=== PATIENT | female | born 1960 | race Caucasian/White ===

== ENCOUNTER 2022-02-07 14:27 | Outpatient (CLI) | payer OTHER, SELFPAY ==
--- OUTSIDE RECORDS SUMMARY | 2022-02-07 14:30 | XMS_ITS | Clinical Summary ---
:1960 Author Organization [facility] [place] [address] Care Team Providers Name Role Phone Siobhan Puente MD Primary Care Provider Unavailable Allergies No known active allergies Medications Medication Sig Dispensed Refills Start Date End Date Status lutein-zeaxanthin 25-5 Take by mouth. 0 05/23/2016 Active mg cap omega-3 fatty Take by mouth. 0 05/23/2016 Active acids-vitamin E (FISH OIL) 1,000 mg cap multivitamins-calcium- Take 1 tablet by 0 04/20/2017 Active iron-minerals 27-0.4 mouth once daily. mg tab tablet Active Problems Problem Noted Date Impaired fasting glucose 06/11/2012 Diverticulosis of colon (without mention of hemorrhage ) 05/02/2011 Overview: Colonoscopy 04/2011 diverticulosis repea t in 10 years Mole (skin) 01/03/2010 Overview: Moderate atypia in lesion on the low ronen k Lip lesion 01/03/2010 Resolved Problems Problem Noted Date Resolved Date Contraception 11/30/2008 06/11/2012 Medial epicondylitis of elbow 11/30/2008 06/11/2012 Lateral epicondylitis of elbow 11/30/2008 3 Immunizations Name Administration Dates Next Due Influenza, IIV4 04/20/2017, 05/23/2016 Td (Age >=7 Years) 01/21/2003 Tdap 04/10/2011 Family History Medical History Relation Name Comments Cancer Father larynx, was a sm oker Good Health Mother Hypertension Mother Cancer-breast No Family History Cancer-colon No Family History Relation Name Status Comments Brother 1 murder Brother 2 froze to Brother 3 alchoholic Father larynx cancer Mother Alive Social History Tobacco Use Types Packs/Day Years Used Date Never Smoker Smokeless Tobacco: Never Used Tobacco Cessation: Counseling Given: Yes Alcohol Use Standard Drinks/Week Comments Yes 0 (1 standard drink = 0.6 oz pure alcoho l) weekly Sex Assigned at Date Recorded Not on file Obstetrics History Para Term AB IAB SAB Ectopic Multiple Living Live Births 0 0 0 0 0 0 0 0 0 0 Last Filed Vital Signs Vital Sign Reading Time Taken Comments Blood Pressure 147/82 04/20/2017 3:44 PM UNDERCOVER AGENT Pulse 60 04/20/2017 3:39 PM UNDERCOVER AGENT Temperature 36.8 ??C (98.2 ??F) 05/23/2016 9:17 AM UNDERCOVER AGENT Respiratory Rate - - Oxygen Saturation 99% 04/20/2017 3:39 PM UNDERCOVER AGENT Inhaled Oxygen Concentration - - Weight 70.8 kg (156 lb) 04/20/2017 3:39 PM UNDERCOVER AGENT Height 168.5 cm (5' 6.34) 04/20/2017 3:39 PM UNDERCOVER AGENT Body Mass Index 24.92 04/20/2017 3:39 PM UNDERCOVER AGENT Plan of Treatment Health Maintenance Due Date Last Done Comments COVID-19 vaccine series (#1) 1960 Hepatitis C screening for age 0801/07/1977 18-79 Zoster (shingles) series for age 0801/07/2009 50+ (1 of 2) BMI (ht and wt on same day) for 04/20/2018 04/20/2017, 05/05 age 18+ Depression screening for age 12+ 04/20/2018 04/20/2017, Mammogram for age 45-75 04/20/2018 04/20/2017, 05/23/2016, 06/11/2012, Additional history exists Tetanus booster 04/10/2021 04/10/2011, 01/21/2003 Colonoscopy through age 75 05/02/2021 05/02/2011, 1 Lipids for age 45-75 05/23/2021 05/23/2016, 04/26/2011, 09/28/2006 Pap test for age 21-65 05/23/2021 05/23/2018, 05/23/2018, 05/23/2016, Additional history exists Influenza for age 50-64 02/02/2022 04/20/2017, 05/23/2016, 04/10/2011 (Declined) Tdap Completed 04/10/2011 Goals Goal Patient Goal Associated Recent Patient-Stated? 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
--- NOTE | 2022-02-07 14:40 | CRLHL7_ITS ---
For Patients: As a result of the Century Cures Act, medical imaging exams and procedure reports are released immediately into your electronic medical record. You may view this report before your referring provider. If you have questions, please contact your health care provider. BILATERAL SCREENING MAMMOGRAM WITH COMPUTER-AIDED DETECTION AND TOMOSYNTHESIS TECHNIQUE: CC and MLO views were obtained. These mammographic images have been obtained using full-field digital technique. These mammographic images were interpreted with the benefit of computer-aided detection. Breast Tomosynthesis was used in this interpretation. COMPARISON FILM: 09/07/20, 05/26/19, 05/23/18. FINDINGS: There are scattered areas of fibroglandular density IMPRESSION: There is no radiographic evidence for malignancy. ASSESSMENT: BI-RADS Category 1: Negative RECOMMENDATION: Routine screening mammogram in 1 year. A lay language report of this examination will be provided to the patient. Klever Roland M.D. Diagnostic Radiologist [email or web address] TERE/Dictated by: Klever Roland MD @ 02/08/2022 8:31:00 AM (Electronically Signed)
== END 2022-02-07 14:28 | disposition home or self-care (01) ==
LOC: MAMMO 14:28
PROVIDERS: PCP Internal Medicine; Visit Provider Internal Medicine
DX: Z12.31 Encounter for screening mammogram for malignant neoplasm of breast (principal)
CPT/HCPCS: 77063; 77067

== ENCOUNTER 2023-02-15 15:09 | Outpatient (CLI) | payer OTHER, SELFPAY ==
--- NOTE | 2023-02-15 15:20 | CRLHL7_ITS ---
For Patients: As a result of the Century Cures Act, medical imaging exams and procedure reports are released immediately into your electronic medical record. You may view this report before your referring provider. If you have questions, please contact your health care provider. BILATERAL SCREENING MAMMOGRAM WITH COMPUTER-AIDED DETECTION AND TOMOSYNTHESIS TECHNIQUE: CC and MLO views were obtained. These mammographic images have been obtained using full-field digital technique. These mammographic images were interpreted with the benefit of computer-aided detection. Breast Tomosynthesis was used in this interpretation. COMPARISON FILM: 02/07/22, 09/07/20,05/26/19. FINDINGS: There are scattered areas of fibroglandular density IMPRESSION: There is no radiographic evidence for malignancy. ASSESSMENT: BI-RADS Category 2: Benign RECOMMENDATION: Routine screening mammogram in 1 year. A lay language report of this examination will be provided to the patient. Klever Roland M.D. Diagnostic Radiologist [email or web address] TERE/Dictated by: Klever Roland MD @ 02/16/2023 12:49:00 PM (Electronically Signed)
== END 2023-02-15 15:10 | disposition home or self-care (01) ==
LOC: MAMMO 15:10
PROVIDERS: PCP Internal Medicine; Visit Provider Internal Medicine
DX: Z12.31 Encounter for screening mammogram for malignant neoplasm of breast (principal)
CPT/HCPCS: 77063; 77067

== ENCOUNTER 2023-11-05 14:47 | Outpatient (CLI) | payer OTHER, SELFPAY ==
--- OUTSIDE RECORDS SUMMARY | 2023-11-05 14:51 | XMS_ITS ---
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 Procedure Estimated Blood Loss Check Surgery Details section. Procedure Findings Check Surgery Details section. Procedure Specimens Taken Check Surgery Details section.
--- OUTSIDE RECORDS SUMMARY | 2023-11-05 14:51 | XMS_ITS | Clinical Summary ---
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 For routine questions regarding patient records, call [phone] during business hours, M-F 8:00 AM - 5:00 PM Central Time. Record requests for emergency care only can be directed to [phone] at any time.[facility] Allergies No known active allergies Medications Medication Sig Dispensed Refills Start Date End Date Status levETIRAcetam (KEPPRA) 1,000 mg tablet Take 1 tablet (1,000 mg total) by mouth 2 (two) times a day for 13 doses. To prevent seizure from known intracranial bleed. 13 tablet 10/02/2023 Active ondansetron ODT (ZOFRAN-ODT) 4 mg disintegrating tablet Dissolve 1 tablet (4 mg total) in the mouth every 8 (eight) hours as needed for nausea or vomiting. 20 tablet 10/02/2023 Active Additional Information Patient not taking.Reported on 10/05/2023 acetaminophen (TYLENOL) 500 mg tablet Take 2 tablets (1,000 mg total) by mouth 3 (three) times a day. 60 tablet 2 10/02/2023 Active Additional Information Patient not taking.Reported on 10/05/2023 vit27,calcium/iron/F A (multivitamin/minera l-) tablet Take 1 tablet by mouth daily. Health maintenance. 90 tablet 3 10/03/2023 Active lutein-zeaxanthin 25-5 mg capsule Take by mouth. 05/23/2016 Activ e wqjkqyipdrvy-Ra-rgdt -minerals 27-0.4 mg tablet Take 1 tablet by mouth daily. 04/20/2017 Active Active Problems Problem Noted Date Diagnosed Date Subarachnoid Hemorrhage With Loss Of Conscious I nitial 10/02/2023 Traumatic Subdural Hemorrhag e With Loss Of Consciousness Of 30 Minutes Or Less Initial 10/02/2023 History Of Falling 10/02/2023 Alcohol Abuse With Intoxication Unspecified 09/04 Contusion Shoulder Initial Left 10/02/2023 Laceration Face Initial 10/02/2023 Fracture Orbital Floor Open Initial Left 024 Resolved Problems Problem Noted Date Diagnosed Date Resolved Date Fracture Orbital Floor Closed Initial Left 10/02/2023 10/02/2023 Encounters Date Type Department Care Team Description 10/05/2023 1:00 PM CDT Comprehensive Visit Department of Neurological Surgery in [address] [phone] Kristin Grover P.A.-C., M.S. Subarachnoid Hemorrhage With Loss Of Conscious Initial (HCC); Traumatic Subdural Hemorrhage With Loss Of Consciousness Of 30 Minutes Or Less Initial (HCC); Injury Head Initial; History Of Falling; Laceration Face Initial; Alcohol Abuse With Intoxication Unspecified (HCC); Contusion Shoulder Initial Left; Fracture Orbital Floor Open Initial Left (HCC); Fracture Orbital Floor Closed Initial Left (HCC) Discharge Disposition: Home or Self Care 10/04/2023 2:00 PM CDT - 10/04/2023 11:59 PM CDT Hospital Encounter Department of Radiology in [place], [place] [address] [place] [address] Manuel Lee M.D. Subarachnoid Hemorrhage With Loss Of Conscious Initial (HCC); Traumatic Subdural Hemorrhage With Loss Of Consciousness Of 30 Minutes Or Less Initial (HCC); Injury Head Initial; History Of Falling; Laceration Face Initial; Alcohol Abuse With Intoxication Unspecified (HCC); Contusion Shoulder Initial Left; Fracture Orbital Floor Open Initial Left (HCC); Fracture Orbital Floor Closed Initial Left (HCC) Discharge Disposition: Home or Self Care 10/03/2023 Clinical Communication Department of Transitional Care in [address] [phone] Yuko Gustafson R.N. Tcm - Post-Hospital Visit 10/03/2023 Clinical Communication Department of Neurological Surgery in [place], [place] [address] [place] [phone] Lucy Mendoza R.N. Referral 10/02/2023 2:00 AM CDT Ancillary Procedure Department of Nursing 10/02/2023 1:55 AM CDT Ancillary Procedure Department of Nursing 10/02/2023 1:50 AM CDT Ancillary Procedure Department of Nursing 10/01/2023 9:03 PM CDT - 10/02/2023 6:40 PM CDT Emergency [facility], Second Floor [address] [phone] Jake Arias M.D. Ingrid Brown APRN, C.N.P., D.N.P. Manuel Lee M.D. Subarachnoid Hemorrhage With Loss Of Conscious Initial (HCC) (Primary Dx); Traumatic Subdural Hemorrhage With Loss Of Consciousness Of 30 Minutes Or Less Initial (HCC); Injury Head Initial; History Of Falling; Laceration Face Initial; Alcohol Abuse With Intoxication Unspecified (HCC); Contusion Shoulder Initial Left; Fracture Orbital Floor Open Initial Left (HCC); Fracture Orbital Floor Closed Initial Left (HCC) Discharge Disposition: Home or Self Care from Last 3 Months Immunizations Name Administration Dates Next Due Td (Adult), adsorbed 01/21/2003 Tdap 10/01/2023,04/10/2011 influenza vaccine quad (FLUZ ONE/FLUARIX) (6 months and older)(PF) 04/20/2017,05/23/2016 Social History Tobacco Use Types Packs/Day Years Used Date Smoking Tobacco: Never Smokeless Tobacco: Never Tobacco Cessation:Counseling Given: Not Answered Alcohol Use Standard Drinks/Week Comments Yes 0 (1 standard drink = 0.6 oz pur e alcohol) [facility] Utilities Answer Date Recorded In the past 12 months has e [employer], gas, oil, or water [employer] threatened to shut off services in your home? No 10/02/2023 Humiliation, Afraid, Rape, and Kick questionnair e Answer Date Recorded Within the last year, have y ou been afraid of your partner or ex-partner? No 10/02/2023 Within the last year, have y ou been humiliated or emotionally abused in other ways by your partner or ex-partner? No Within the last year, have y ou been kicked, hit, slapped, or otherwise physically hurt by your partner or ex-partner? No 10/02/2023 Within the last year, have y ou been raped or forced to have any kind of sexual activity by your partner or ex-partner? No 10/02/2023 Hunger Vital Sign Answer Date Recorded Within the past 12 months, y ou worried that your food would run out before you got the money to buy more. Never true 10/02/19 24 Within the past 12 months, t he food you bought just didn't last and you didn't have money to get more. Never true 10/02/2023 PRAPARE - Transportation Answer Date Re corded In the past 12 months, has l ack of transportation kept you from medical appointments or from getting medications? No 09/04 In the past 12 months, has l ack of transportation kept you from meetings, work, or from getting things needed for daily living? No 10/02/2023 Dental Answer Date Recorded Dental: Regular Dentist Unknown 10/10/19 Housing Stability Answer Date Recorded What is your living situation today? I have a [facility] place to live 10/02/2023 Sex and Gender Information Value Date Recorded Sex Assigned at Not on file Gender Identity Not on file Sexual Orientation Not on file Last Filed Vital Signs Vital Sign Reading Time Taken Comments Blood Pressure 119/75 10/05/2023 12:44 PM CDT Pulse 71 10/05/2023 12:44 PM CDT Temperature 36.3 ??C (97.3 ??F) 10/02/2023 6:19 PM CD T Respiratory Rate 16 10/02/2023 6:19 PM CDT Oxygen Saturation 96% 10/02/2023 6:19 PM CDT Inhaled Oxygen Concentration - - Weight 72.7 kg (160 lb 4.4 oz) 10/02/2023 1:42 A M CDT Height 170.2 cm (5' 7) 10/02/2023 1:42 AM CDT Body Mass Index 25.1 10/02/2023 1:42 AM CDT Plan of Treatment Health Maintenance Due Date Last Done Comments CT Colonography 1959 Cologuard 1959 Colonoscopy 1959 Colorectal Cancer Screening 1959 FIT 1959 HIV Screening 1959 Hepatitis C Screening 1959 Lipid (Cholesterol) Screening 1959 Mammogram 1959 Pneumococcal vaccine (0-64 y ears) (1 of 2 - PCV) 1965 Depression Screening (Annual PHQ-2) 06/04/2023 Cervical Cancer Screening 12/27/2025 12/27/2022 Fasting Glucose for Diabetes Screening 10/01/2026 10/02/2023, 10/02/2023, 10/01/2023 DTaP,Tdap,and Td Vaccines (4 - Td or Tdap) 09/30/2033 10/01/2023, 09/30/2020, 04/10/2011, Additional history exists Zoster Vaccines Completed 02/01/2021, 11/08/2020 COVID-19 Vaccine Completed 04/04/2023, 02/2022, 12/27/2021, Additional history exists Influenza Vaccine Completed 04/04/2023, , 03/15/2021, Additional history exists Procedures Procedure Name Priority Date/Time Associated Diagnosis Comments CT HEAD WITHOUT IV CONTRAST RAD - Routine (most inpatients and all outpatients) 10/04/2023 2:25 PM CDT Subarachnoid Hemorrhage With Loss Of Conscious Initial (HCC) Traumatic Subdural Hemorrhage With Loss Of Consciousness Of 30 Minutes Or Less Initial (HCC) Injury Head Initial History Of Falling Laceration Face Initial Alcohol Abuse With Intoxication Unspecified (HCC) Contusion Shoulder Initial Left Fracture Orbital Floor Open Initial Left (HCC) Fracture Orbital Floor Closed Initial Left (HCC) MAGNESIUM, S STAT 10/02/2023 4:40 PM CDT BASIC METABOLIC PANEL, S/P STAT 10/02/2023 4:[address] HEAD WITHOUT IV CONTRAST RAD - Routine (most inpatients and all outpatients) 10/02/2023 7:40 AM CDT CBC WITH DIFFERENTIAL, B Routine 10/02/2023 5:50 AM CDT BASIC METABOLIC PANEL, S/P Routine 10/02/2023 5:50 AM CDT NURSING IMAGE EXAM Routine 10/02/2023 1: 52 AM CDT NURSING IMAGE EXAM Routine 10/02/2023 1: 52 AM CDT NURSING IMAGE EXAM Routine 10/02/2023 1: [address] HEAD WITHOUT IV CONTRAST RAD - Semiurgent (Fast; most ED patients; some inpatients) 10/02/2023 12:30 AM CDT DX SHOULDER LEFT 2+ VIEWS RAD - Semiurgent (Fast; most ED patients; some inpatients) 10/01/2023 11:31 PM CDT ETHANOL, S STAT 10/01/2023 10:05 PM CDT ACTIVATED PARTIAL THROMBOPLASTIN TIME (APTT), P STAT 10/01/2023 10:05 PM CDT PROTHROMBIN TIME (PT), P STAT 10/01/2023 10:05 PM CDT CBC WITH DIFFERENTIAL, B STAT 10/01/2023 10:05 PM CDT COMPREHENSIVE METABOLIC PANEL, S/P STAT 10/01/2023 10:[address] CERVICAL SPINE WITHOUT IV CONTRAST RAD - Semiurgent (Fast; most ED patients; some inpatients) 10/01/2023 9:[address] MAXILLOFACIAL WITHOUT IV CONTRAST RAD - Semiurgent (Fast; most ED patients; some inpatients) 10/01/2023 9:[address] HEAD WITHOUT IV CONTRAST RAD - Semiurgent (Fast; most ED patients; some inpatients) 10/01/2023 9:34 PM CDT from Last 3 Months Results * CT Head without IV Contrast (10/04/2023 2:25 PM CDT) Only the most recent of4 resultswithin the time period is included. Anatomical Region Laterality Modality Head, Neuroradiology RST LOS , Neuroradiology ARZ LOS, Neuroradiology FLA LOS N/A Computed Tomography 10/04/2023 2:24 PM CDT Impressions 10/04/2023 2:33 PM CDT 1. Unchanged trace right frontal subarachnoid hemorrhage. 2. No new or additional acute intracranial pathology. Narrative 10/04/2023 2:33 PM CDT EXAM: CT HEAD WITHOUT IV CONTRAST COMPARISON: 10/02/2023 FINDINGS: Trace left frontal subarachnoid hemorrhage that is demonstrated on axial image 18 through 23 of series 3 (as indicated on the radiographs) along the interhemispheric fissure remains stable when compared to the study performed 2 days previously. There is no new acute intracranial pathology demonstrated. There is no intra- axial or extra-axial fluid collection, or midline shift. The ventricles and extra-axial compartments are symmetric and normal in appearance. The felix-white interface is normal. Air-fluid level incompletely visualized involving the left maxillary sinus. No skull fractures. Procedure Note Micah Diaz M.D. - 10/04/2023 EXAM: CT HEAD WITHOUT IV CONTRAST COMPARISON: 10/02/2023 FINDINGS: Trace left frontal subarachnoid hemorrhage that is demonstratedon axial image 18 through 23 of series 3 (as indicated on the radiographs)along the interhemispheric fissure remains stable when compared to thestudy performed 2 days previously. There is no new acute intracranial pathology demonstrated. There is nointra- axial or extra-axial fluid collection, or midline shift. Theventricles and extra-axial compartments are symmetric and normal inappearance. The felix-white interface is normal. Air-fluid level incompletely visualized involving the left maxillarysinus. No skull fractures. IMPRESSION: 1. Unchanged trace right frontal subarachnoid hemorrhage. 2. No new or additional acute intracranial pathology. Manuel Lee M.D. IMG CT PROCEDURE S * Magnesium (10/02/2023 4:40 PM CDT) Magnesium, P 1.8 1.7 - 2.3 mg/dL 10/02/2023 5:02 PM CDT NPRG Blood (Blood, Venous) 10/02/2023 4:40 PM CDT 10/02/2023 4:44 PM CDT Manuel Lee M.D. LAB BLOOD ADD-ON [facility] [address] [place] [address], [facility] NPRG [facility] [address] [place] [address] * (ABNORMAL) Basic Metabolic Panel (10/02/2023 4:40 PM CDT) Only the most recent of2 resultswithin the time period is included. Potassium, P 4.3 3.6 - 5.2 mmol/L 10/02/2023 5:02 PM CDT NPRG Sodium, P 144 135 - 145 mmol/L 10/02/2023 5:02 PM CDT NPRG Chloride, P 110(H) 98 - 107 mmol/L 10/02/2023 5:02 PM CDT NPRG Bicarbonate, P 27 22 - 29 mmol/L 10/02/2023 5:02 PM CDT NPRG Anion Gap, P 7 7 - 15 10/02/2023 5:02 PM CDT NPRG BUN (Blood Urea Nitrogen), P 20 6 - 21 mg/dL 10/02/2023 5:02 PM CDT NPRG Creatinine 0.61 0.59 - 1.04 mg/dL 10/02/2023 5:02 PM CDT NPRG Estimated GFR (eGFR) >90 >=60 mL/min/BSA 10/02/2023 5:02 PM CDT NPRG Comment: Estimated GFR calculated using the 2020 CKD_EPI creatinine equation. Calcium, Total, P 9.5 8.8 - 10.2 mg/dL 10/02/2023 5:02 PM CDT NPRG Glucose, P 84 70 - 140 mg/dL 10/02/2023 5:02 PM CDT NPRG Blood (Blood, Venous) 10/02/2023 4:40 PM CDT 10/02/2023 4:44 PM CDT Manuel Lee M.D. LAB BLOOD ADD-ON [facility] [address] [place] [address], [facility] NPRG [facility] [address] [place] [address] * CBC with Differential, Blood (10/02/2023 5:50 AM CDT) Only the most recent of2 resultswithin the time period is included. Hemoglobin 12.8 11.6 - 15.0 g/dL 10/02/2023 6:18 AM CDT NPRG Hematocrit 38.4 35.5 - 44.9 % 10/02/2023 6:18 AM CDT NPRG Erythrocytes 4.40 3.92 - 5.13 x10(12)/L 10/02/2023 6:18 AM CDT NPRG MCV 87.3 78.2 - 97.9 fL 10/02/2023 6:18 AM CDT NPRG RBC Distrib Width 13.8 12.2 - 16.1 % 10/02/2023 6:18 AM CDT NPRG Platelet Count 283 157 - 371 x10(9)/L 10/02/2023 6:18 AM CDT NPRG Leukocytes 6.2 3.4 - 9.6 x10(9)/L 10/02/2023 6:18 AM CDT NPRG Neutrophils 3.25 1.56 - 6.45 x10(9)/L 10/02/2023 6:18 AM CDT NPRG Lymphocytes 2.29 0.95 - 3.07 x10(9)/L 10/02/2023 6:18 AM CDT NPRG Monocytes 0.40 0.26 - 0.81 x10(9)/L 10/02/2023 6:18 AM CDT NPRG Eosinophils 0.24 0.03 - 0.48 x10(9)/L 10/02/2023 6:18 AM CDT NPRG Basophils <0.04 0.01 - 0.08 x10(9)/L 10/02/2023 6:18 AM CDT NPRG Blood (Blood, Venous) 10/02/2023 5:50 AM CDT 10/02/2023 6:08 AM CDT Ingrid Brown APRN, C.N.P., D.N.P. LAB BLO OD ADD-ON [facility] [address] [place] [address], [facility] NPRG [facility] [address] [place] [address] * Eye Left-Nursing Image Exam (10/02/2023 1:52 AM CDT) Only the most recent of3 resultswithin the time period is included. 10/02/2023 1:50 AM CDT Narrative IIMS - 10/02/2023 1:52 AM CDT This order has been created and auto-finalized to support the import of images acquired without order. The clinical documentation to support these images can be found on the encounter that produced images. Provider Not In System IMG NON RAD IMAGI NG PROCEDURES Performing Organization Address City/[facility]/ZIP Co de Phone Number IIMS NA * DX Shoulder Left 2+ Views (10/01/2023 11:31 PM CDT) Anatomical Region Laterality Modality Upper Extremity, Shoulder, M usculoskeletal RST LOS, Musculoskeletal ARZ LOS, Muskuloskeletal FLA LOS Left Digit al Radiography Impressions 10/01/2023 11:49 PM CDT No acute fracture or malalignment. 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 Osteopenia. Narrative 10/01/2023 11:49 PM CDT EXAM: DX SHOULDER LEFT 2+ VIEWS Procedure Note Giovanni Tijerina M.D. - 10/01/2023 EXAM: DX SHOULDER LEFT 2+ VIEWS IMPRESSION: No acute fracture or malalignment. Mild to moderate acromioclavicular andglenohumeral joint degenerative osteoarthritis. Osteopenia. Jake Arias M.D. IMG DIAGNOSTIC IMAG ING PROCEDURES * (ABNORMAL) Ethanol Level, Serum (10/01/2023 10:05 PM CDT) Ethanol, P 205(H) <10 mg/dL 10/01/2023 10:33 PM CDT NPRG Blood (Blood, Venous) 10/01/2023 10:05 PM CDT 10/01/2023 10:08 PM CDT Jake Arias M.D. LAB BLOOD NON ADD-O N [facility] [address] [place] [address], [facility] NPRG [place] [address] [place] [address] * APTT (Activated Partial Thromboplastin Time) (10/01/2023 10:05 PM CDT) Activated Partial Thrombopl Time, P 28 25 - 37 sec 10/01/2023 10:20 PM CDT NPRG Blood (Blood, Venous) 10/01/2023 10:05 PM CDT 10/01/2023 10:08 PM CDT Jake Arias M.D. LAB BLOOD ADD-ON [facility] [address] [place] [address], [facility] NPRG [place] [address] [place] [address] * Prothrombin Time (PT) (10/01/2023 10:05 PM CDT) Prothrombin Time, P 9.6 9.4 - 12.5 sec 10/01/2023 10:17 PM CDT NPRG INR 0.9 0.9 - 1.1 10/01/2023 10:17 PM CDT NPRG Comment: ----ADDITIONAL INFORMATION---- Standard intensity warfarin therapeutic range: 2.0 to 3.0 ?? High intensity warfarin therapeutic range: 2.5 to 3.5 Blood (Blood, Venous) 10/01/2023 10:05 PM CDT 10/01/2023 10:08 PM CDT Jake Arias M.D. LAB BLOOD ADD-ON [facility] [address] [place] [address], [facility] NPRG [facility] [address] [place] [address] * (ABNORMAL) Comprehensive Metabolic Panel (10/01/2023 10:05 PM CDT) Potassium, P 3.4(L) 3.6 - 5.2 mmol/L 10/01/2023 10:33 PM CDT NPRG Sodium, P 144 135 - 145 mmol/L 10/01/2023 10:33 PM CDT NPRG Chloride, P 108(H) 98 - 107 mmol/L 10/01/2023 10:33 PM CDT NPRG Bicarbonate, P 23 22 - 29 mmol/L 10/01/2023 10:33 PM CDT NPRG Anion Gap, P 13 7 - 15 10/01/2023 10:33 PM CDT NPRG BUN (Blood Urea Nitrogen), P 23(H) 6 - 21 mg/dL 10/01/2023 10:33 PM CDT NPRG Creatinine 0.58(L) 0.59 - 1.04 mg/dL 10/01/2023 10:33 PM CDT NPRG Estimated GFR (eGFR) >90 >=60 mL/min/BS A 10/01/2023 10:33 PM CDT NPRG Comment: Estimated GFR calculated using the 2020 CKD_EPI creatinine equation. Calcium, Total, P 9.4 8.8 - 10.2 mg/dL 10/01/2023 10:33 PM CDT NPRG Glucose, P 118 70 - 140 mg/dL 10/01/2023 10:33 PM CDT NPRG Protein, Total, P 6.7 6.3 - 7.9 g/dL 10/01/2023 10:33 PM CDT NPRG Albumin, P 4.1 3.5 - 5.0 g/dL 10/01/2023 10:33 PM CDT NPRG Aspartate Aminotransferase (AST), P 20 8 - 43 U/L 10/01/2023 10:33 PM CDT NPRG Alkaline Phosphatase, P 79 35 - 104 U/L 10/01/2023 10:33 PM CDT NPRG Alanine Aminotransferase (ALT), P 20 7 - 45 U/L 10/01/2023 10:33 PM CDT NPRG Bilirubin, Total, P <0.2 0.0 - 1.2 mg/dL 10/01/2023 10:33 PM CDT NPRG Blood (Blood, Venous) 10/01/2023 10:05 PM CDT 10/01/2023 10:08 PM CDT Jake Arias M.D. LAB BLOOD ADD-ON [facility] [address] [place] [address], [facility] NPRG [facility] [address] [place] [address] * CT Cervical Spine without IV Contrast (10/01/2023 9:35 PM CDT) Anatomical Region Laterality Modality Cervical Spine, Neuroradiolo gy RST LOS, Neuroradiology ARZ LOS, Neuroradiology FLA LOS N/A Computed Tomography 10/01/2023 9:37 PM CDT Impressions 10/01/2023 9:55 PM CDT No acute fracture or malalignment of the cervical spine. Narrative 10/01/2023 9:55 PM CDT EXAM: CT CERVICAL SPINE WITHOUT IV CONTRAST COMPARISON: None FINDINGS: No acute fracture or malalignment. Slight reversal of normal cervical lordosis. Multilevel degenerative disc disease, greatest at C5-C6 and C6-C7 where it is moderate. Multilevel posterior disc osteophyte complexes, most notable at C6-C7 with mild associated spinal canal narrowing. Multilevel neural foraminal narrowing, greatest at C6-C7 on the left where it is moderate. Multilevel facet joint arthropathy. No perched or jumped facets. No significant asymmetric posterior interspinous widening. Grossly unremarkable prevertebral and paraspinal soft tissues. Small calcified calcified thyroid nodules. Procedure Note Giovanni Tijerina M.D. - 10/01/2023 EXAM: CT CERVICAL SPINE WITHOUT IV CONTRAST COMPARISON: None FINDINGS: No acute fracture or malalignment. Slight reversal of normal cervical lordosis. Multilevel degenerative discdisease, greatest at C5-C6 and C6-C7 where it is moderate. Multilevelposterior disc osteophyte complexes, most notable at C6-C7 with mildassociated spinal canal narrowing. Multilevel neural foraminal narrowing, greatest at C6-C7 on the left whereit is moderate. Multilevel facet joint arthropathy. No perched or jumpedfacets. No significant asymmetric posterior interspinous widening. Grossly unremarkable prevertebral and paraspinal soft tissues. Smallcalcified calcified thyroid nodules. IMPRESSION: No acute fracture or malalignment of the cervical spine. Jake Arias M.D. IMG CT PROCEDURES * CT Maxillofacial without IV Contrast (10/01/2023 9:34 PM CDT) Anatomical Region Laterality Modality Jaw, Head, Neuroradiology RS T LOS, [facility]ad[facility], [facility] N/A Computed Tomography Impressions 10/01/2023 9:45 PM CDT 1. Acute left parafalcine subarachnoid hemorrhage. 2. Small acute right parafalcine subdural hematoma. 3. Acute blowout fracture of the left orbital floor. 4. Left periorbital soft tissue contusion. Findings discussed with Dr. Arias on 10/01/2023 at 2138. Narrative 10/01/2023 9:45 PM CDT EXAM: CT HEAD WITHOUT IV CONTRAST, CT MAXILLOFACIAL WITHOUT IV CONTRAST COMPARISON: None FINDINGS: Trace amount of left parafalcine subarachnoid hemorrhage (series 6 image 41). Small volume right parafalcine subdural hematoma (series 6 image 32 and series 5 image 52). Mild sulcal effacement along the falx on the left. No hydrocephalus or acute infarct. Moderate global cerebral and cerebellar volume loss. Scattered intracranial vascular calcifications. Acute blowout fracture of the left orbital floor. No evidence of extra-axial muscular entrapment. Left periorbital soft tissue contusion. Partial opacification of the left maxillary sinus with blood products. Mucous retention cyst in the right maxillary sinus. The remainder the visualized paranasal sinuses and mastoid air cells are well-aerated. Procedure Note Prosper Mansfield M.D. - 10/01/2023 EXAM: CT HEAD WITHOUT IV CONTRAST, CT MAXILLOFACIAL WITHOUT IV CONTRAST COMPARISON: None FINDINGS: Trace amount of left parafalcine subarachnoid hemorrhage (series6 image 41). Small volume right parafalcine subdural hematoma (series 6image 32 and series 5 image 52). Mild sulcal effacement along the falx onthe left. No hydrocephalus or acute infarct. Moderate global cerebral and cerebellar volume loss.Scattered intracranial vascular calcifications. Acute blowout fracture ofthe left orbital floor. No evidence of extra-axial muscular entrapment.Left periorbital soft tissue contusion. Partial opacification of the left maxillary sinus with blood products.Mucous retention cyst in the right maxillary sinus. The remainder thevisualized paranasal sinuses and mastoid air cells are well-aerated. IMPRESSION: 1. Acute left parafalcine subarachnoid hemorrhage. 2. Small acute right parafalcine subdural hematoma. 3. Acute blowout fracture of the left orbital floor. 4. Left periorbital soft tissue contusion. Findings discussed with Dr. Arias on 10/01/2023 at 2138. Jake Arias M.D. 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
--- OUTSIDE RECORDS SUMMARY | 2023-11-05 14:51 | XMS_ITS | Encounter Summary ---
Author Organization [facility] Address [address] [place] [address] Care Team Providers Care Broadcast Meteorologist Name Role Phone Elsewhere, Pcp Primary Care Provider Unavailabl e Reason for Referral * Outpatient (Routine) - Authorized Specialty Diagnoses / Procedures Referred By Contac t Referred To Contact Kristin Grover P.A.-C., M.S. [facility] [place] [address] [facility] Referral ID Status Reason Start Date Expiration Date V isits Requested Visits Authorized [id number] Authorized 10/05/2023 04/05/2025 1 1 Scheduling Instructions With Kristin after head CT completed (external results will need to be retrieved) * Outpatient (Routine) - Authorized Specialty Diagnoses / Procedures Referred By Contac t Referred To Contact Radiology Diagnoses Subarachnoid Hemorrhage With Loss Of Conscious Initial (HCC) Traumatic Subdural Hemorrhage With Loss Of Consciousness Of 30 Minutes Or Less Initial (HCC) Kristin Grover P.A.-C., M.S. [address] [place] [address] [address] Phone: [phone] Referral ID Status Reason Start Date Expiration Date Visits Requested Visits Authorized [id number] Authorized Patient Preference 10/05/2023 04/05/2025 1 1 Reason for Visit * Reason Comments Follow-up Subarachnoid Hemorrh age. CT's completed on 10/03 * Outpatient (Routine) - Closed Specialty Diagnoses / Procedures Referred By Leander t Referred To Contact Neurological Surgery Diagnoses Subarachnoid Hemorrhage With Loss Of Conscious Initial (HCC) Traumatic Subdural Hemorrhage With Loss Of Consciousness Of 30 Minutes Or Less Initial (HCC) Injury Head Initial History Of Falling Laceration Face Initial Alcohol Abuse With Intoxication Unspecified (HCC) Contusion Shoulder Initial Left Fracture Orbital Floor Open Initial Left (HCC) Fracture Orbital Floor Closed Initial Left (HCC) Manuel Lee M.D. [address] [place] [phone] [facility] Referral ID Status Reason Start Date Expiration Date Visits Re quested Visits Authorized [id number] Closed 10/02/2023 04/02/2025 1 1 Encounter Details Date Type Department Care Team (Latest Contact Info) Description 10/05/2023 1:00 PM CDT Comprehensive Visit Department of Neurological Surgery in [address] [phone] Kristin Grover P.A.-C., M.S. [address] [place] [phone] Subarachnoid Hemorrhage With Loss Of Conscious Initial (HCC); Traumatic Subdural Hemorrhage With Loss Of Consciousness Of 30 Minutes Or Less Initial (HCC); Injury Head Initial; History Of Falling; Laceration Face Initial; Alcohol Abuse With Intoxication Unspecified (HCC); Contusion Shoulder Initial Left; Fracture Orbital Floor Open Initial Left (HCC); Fracture Orbital Floor Closed Initial Left (HCC) Discharge Disposition: Home or Self Care Social History Tobacco Use Types Packs/Day Years Used Date Smoking Tobacco: Never Smokeless Tobacco: Never Tobacco Cessation:Counseling Given: Not Answered Alcohol Use Standard Drinks/Week Comments Yes 0 (1 standard drink = 0.6 oz pur e alcohol) [facility] Utilities Answer Date Recorded In the past 12 months has [employer] gas, oil, or water [email or web address] threatened to shut off services in your [...] things needed for daily living? No 10/02/2023 Housing Stability Answer Date Recorded What is your living situation today? I have a [facility] place to live 10/02/2023 Sex and Gender Information Value Date Recorded Sex Assigned at Not on file Gender Identity Not on file Sexual Orientation Not on file documented as of this encounter Last Filed Vital Signs Vital Sign Reading Time Taken Comments Blood Pressure 119/75 10/05/2023 12:44 PM CDT Pulse 71 10/05/2023 12:44 PM CDT Temperature - - Respiratory Rate - - Oxygen Saturation - - Inhaled Oxygen Concentration - - Weight - - Height - - Body Mass Index - - documented in this encounter Progress Notes * Kristin Grover P.A.-C., M.S. - 10/05/2023 1:00 PM CDT SUBJECTIVE CHIEF COMPLAINT / REASON FOR VISIT Theresa Krause is a 63 y.o. female who presents for evaluation of traumatic subarachnoid hemorrhage.Follow up of trace left frontal subarachnoid hemorrhage. HISTORY OF PRESENT ILLNESS Patient returns to Neurosurgery for follow up of traumatic subarachnoid hemorrhage after a fall at home. Patient was initially seen in the Emergency Department on 10/01/2023 following a fall resultingin orbital fracture and intracranial hemorrhage. Neurosurgery consulted regarding CT findings of acute intracranial hemorrhage without compression or midline shift. No neurosurgical intervention indicated. She has been managed conservatively with close surveillance. I would refer the interested reader to previous ED notes for further details in this regard. A CT of the head was obtained prior to this visit and those results are discussed in detail below. At this time, the patient denies any headache, nausea, vomiting, dizziness, confusion, disorientation, weakness in the extremities, numbnessin the extremities, difficulty speaking, difficulty understanding speech, problems with balance, orany other neurologic concerns. She notes some occasional fatigue, but otherwise denies post concussi ve symptoms. She does have an orbital fracture with sutures overlying the left zygomatic arch and cheek region. No concerns with wound, but would like to know when sutures should be removed. She states she has follow up with her eye doctor in November. She is able to see out of her left eye and look around without any significant pain. Vision is mainly limited due to soft tissue periorbital swelling.No recent stroke or seizure like symptoms. The following portions of the patient's history were reviewed and updated as appropriate: allergies, current medications, family history, medical history, social history, surgical history and problemlist. SURGICAL HISTORY No past surgical history on file. REVIEW OF SYSTEMS Constitutional: Positive for fatigue. - Negative for fever. Eyes: Positive for visual problems. - Negative for double vision and sudden loss of vision. All other systems reviewed and are negative. OBJECTIVE VITAL SIGNS BP 119/75 (BP Location: Left arm, Patient Position: Sitting, Cuff Size: Regular) Pulse 71 PHYSICAL EXAMINATION General: The patient is well-nourished, well-developed and in no acute distress. HEENT: Head is normocephalic and atraumatic. Laceration closed with suture below the left eye on the cheek. Skin edges are well apposed with sutures. No surrounding redness or concerning drainage present. Vascular: No lower extremity edema is noted on exam. Extremities are warm and appear well perfused. Mental Status: The patient is alert and oriented to person, place, time, and situation. Memory to recent, remote, and working events appears to be grossly intact. Speech is normal in speed and content. No mental status concerns. Neuro: Cranial nerves II-XII were all intact without any noted abnormalities. Visual field only appears to be limited due to periorbital swelling in the left eye. Oculomotor functions intact and without pain. Strength and sensation are full and symmetric throughout upper and lower extremities bilaterally. Gait is normal and non-antalgic. No obvious balance deficits. Pronator drift is negative bilaterally. Romberg test is negative. Reflexes are 2+ bilaterally at the biceps, triceps, patella, andbrachioradialis. No increased tone noted. Psychiatric: Normal and appropriate mood, affect, behavior, and speech. DIAGNOSTICS CT of the head without contrast dated 10/04/2023 reveals stable to resolving previously noted intracranial hemorrhage. No new or recurrent hemorrhage noted. CT Head without IV Contrast Result Date: 10/04/2023 Impression: 1. Unchanged trace right frontal subarachnoid hemorrhage. 2. No new or additional acuteintracranial pathology. CT Head without IV Contrast Result Date: 10/02/2023 Impression: 1. Since earlier today at 0020, no significant interval change in the small volume acute subdural and subarachnoid hemorrhage as described. No new area of acute intracranial hemorrhage. No mass effect. 2. The known left orbital blowout fractures better demonstrated on 10/01/[address] CT Head without IV Contrast Result Date: 10/02/2023 Impression: Unchanged small volume acute parafalcine subarachnoid and thin subdural hemorrhage. No new or increasing acute intracranial hemorrhage. CT Cervical Spine without IV Contrast Result Date: 10/01/2023 Impression: No acute fracture or malalignment of the cervical spine. CT Head without IV Contrast, CT Maxillofacial without IV Contrast Result Date: 10/01/2023 Impression: 1. Acute left parafalcine subarachnoid hemorrhage. 2. Small acute right parafalcine subdural hematoma. 3. Acute blowout fracture of the left orbital floor. 4. Left periorbital soft tissuecontusion. Findings discussed with Dr. Arias on 10/01/2023 at 2138. ASSESSMENT / PLAN #1 Subarachnoid Hemorrhage With Loss Of Conscious Initial (HCC) #2 Traumatic Subdural Hemorrhage With Loss Of Consciousness Of 30 Minutes Or Less Initial (HCC) #3 Injury Head Initial #4 History Of Falling #5 Laceration Face Initial #6 Alcohol Abuse With Intoxication Unspecified (HCC) #7 Contusion Shoulder Initial Left #8 Fracture Orbital Floor Open Initial Left (HCC) #9 Fracture Orbital Floor Closed Initial Left (HCC) Plan: Patient returns for follow up of intracranial hemorrhage after a fall. The patient appears stable from a neurosurgical opinion. On yesterday's CT, the previously noted blood is resolving; no new or recurrent hemorrhage noted. No neurosurgical intervention is presently recommended. I am very pleasedwith her progress to this point. At this point, the plan is to repeat head CT in 1 month to ensure continued resolution of the head bleed; she would like to complete her CT in [place] and will plan to follow up via phone visit unless there are significant concerns. We discussed thoroughly the signs and symptoms of an enlarging intracranial hemorrhage and/or stroke. The patient will go to the ergency room or call 911 if she develops any difficulties walking, difficulties talking or understanding speech, drooping in the face, weakness in the extremities, seizures, confusion, dizziness, worsening headache, or any other worrisome signs or symptoms. Recommend follow up with PCP 7-10 days from the fall to remove her sutures and assess wound. She is advised to utilize cold packs to help with swelling, but should avoid placing these directly over the eye. The patient agrees with this plan and feels comfortable with it. All questions and concerns have been answered to her satisfaction. Kristin Grover P.A.-C., M.S. documented in this encounter Plan of Treatment Scheduled Referrals Name Type Priority Associated Diagnoses Orde r Schedule NonF2F phone visit Outpatient Referral Routine Expected: 11/05/2023, Expires: 01/04/2025 documented as of this encounter Visit Diagnoses Diagnosis Subarachnoid Hemorrhage With Loss Of Conscious Initial (HCC) Traumatic Subdural Hemorrhage With Loss Of Consciousness Of 30 Minutes Or Less Initial (HCC) Injury Head Initial History Of Falling Laceration Face Initial Alcohol Abuse With Intoxication Unspecified (HCC) Contusion Shoulder Initial Left Fracture Orbital Floor Open Initial Left (HCC) Fracture Orbital Floor Closed Initial Left (HCC) documented in this encounter Care Teams Broadcast Meteorologist Relationship Specialty Start Date End Date Elsewhere, Pcp PCP - General Internal Medicine 10/01/23 documented as of this encounter
--- OUTSIDE RECORDS SUMMARY | 2023-11-05 14:51 | XMS_ITS | Referral Summary ---
Author Organization [facility] Address [address] [place] [address] Care Team Providers Care De Alcoholizer Name Role Phone Elsewhere, Pcp Primary Care Provider Unavailabl e Source Comments Patient records contain information from all sites at [facility]. For routine questions regarding patient records, call [phone] during business hours, M-F 8:00 AM - 5:00 PM Central Time. Record requests for emergency care only can be directed to [phone] at any time.[facility] Encounters Date Type Department Care Team Description 10/05/2023 1:00 PM CDT Comprehensive Visit Department of Neurological Surgery in [place], [place] [address] [place] [phone] Kristin Grover, P.A.-C., M.S. Subarachnoid Hemorrhage With Loss Of [...] CDT Hospital Encounter Department of Radiology in [place], [place] [address] [place] [phone] Manuel Lee M.D. Subarachnoid Hemorrhage With Loss [...] Clinical Communication Department of Transitional Care in [address] [phone] Yuko Gustafson R.N. [facility] - Post-Hospital Visit 10/03/2023 Clinical Communication Department of Neurological Surgery in [address] [phone] Lucy Mendoza R.N. Referral 10/02/2023 2:00 AM CDT Ancillary Procedure Department of Nursing 10/02/2023 1:55 AM CDT Ancillary Procedure Department of Nursing 10/02/2023 1:50 AM CDT Ancillary Procedure Department of Nursing 10/01/2023 9:03 PM CDT - 10/02/2023 6:40 PM CDT Emergency [facility], Second Floor [address] [place] [phone] Jake Arias M.D. Ingrid Brown S, LEON, C.N.P., D.N.P. Manuel Lee M.D. Subarachnoid Hemorrhage [...] or Self Care from Last 3 Months Allergies No known active allergies Medications Medication [...] capsule Take by mouth. 05/23/2016 Activ e iiutviuuduhz-Gk-nryd -minerals 27-0.4 mg tablet Take 1 tablet [...] Orbital Floor Closed Initial Left 10/02/2023 10/02/2023 Immunizations Name Administration Dates Next Due Td (Adult), adsorbed 01/21/2003 Tdap 10/01/2023,04/10/2011 influenza vaccine quad (FLUZ ONE/FLUARIX) (6 months and older)(PF) 04/20/2017,05/23/2016 Social History Tobacco Use Types Packs/Day Years Used Date Smoking Tobacco: Never Smokeless Tobacco: Never Tobacco Cessation:Counseling Given: Not Answered Alcohol Use Standard Drinks/Week Comments Yes 0 (1 standard drink = 0.6 oz pur e alcohol) [facility] Utilities Answer Date Recorded In the past 12 months has e [employer], gas, oil, or water [employer] threatened to shut off services in your [...] your living situation today? I have a [facility] place to live 10/02/2023 Sex and [...] 10/02/2023 1:42 AM CDT Plan of Treatment Not on file Procedures Procedure Name Priority Date/Time Associated Diagnosis [...] CDT Manuel Lee M.D. LAB BLOOD ADD-ON [facility] [address] [place] [address], [place] NPRG [facility] [address] [place] [address] * (ABNORMAL) Basic Metabolic Panel (10/02/2023 4:40 [...] CDT Manuel Lee M.D. LAB BLOOD ADD-ON [facility] [address] [place] [address], [facility] NPR[facility] [address] [place] [address] * CBC with Differential, Blood (10/02/2023 5:50 [...] APRN, C.N.P., D.N.P. LAB BLO OD ADD-ON [facility] [address] [place] [address], [facility] NPR[facility] [address] [place] [address] * Eye Left-Nursing Image Exam (10/02/2023 1:52 [...] RAD IMAGI NG PROCEDURES Performing Organization Address City/[facility]/ZIP Co de Phone Number [facility] NA [...] Arias M.D. LAB BLOOD NON ADD-O N Performing Organization Address City/[facility]/ZIP Co de Phone Number [facility] [address] [place] [address], [facility] NPR[facility] [address] [place] [address] * APTT (Activated Partial Thromboplastin Time) (10/01/2023 10:05 PM CDT) Activated Partial Thrombopl Time, P 28 25 - 37 sec 10/01/2023 10:20 PM CDT [facility] Blood (Blood, Venous) 10/01/2023 10:05 PM CDT 10/01/2023 10:08 PM CDT Jake Arias M.D. LAB BLOOD ADD-ON [facility] [address] [place] [address], [facility] NPRG [place] [address] [place] [address] * Prothrombin Time (PT) (10/01/2023 10:05 PM CDT) Pathologist [facility] Prothrombin Time, P 9.6 9.4 - 12.5 sec 10/01/2023 10:17 PM CDT NPR[facility] INR 0.9 0.9 - 1.1 10/01/2023 10:17 PM CDT [facility] Comment: ----ADDITIONAL INFORMATION---- Standard intensity warfarin therapeutic range: 2.0 to 3.0 ?? High intensity warfarin therapeutic range: 2.5 to 3.5 Blood (Blood, Venous) 10/01/2023 10:05 PM CDT 10/01/2023 10:08 PM CDT Jake Arias M.D. LAB BLOOD ADD-ON [facility] [address] [place] [address], [place] [address] [place] [address] * (ABNORMAL) Comprehensive Metabolic Panel (10/01/2023 10:05 [...] CDT Jake Arias M.D. LAB BLOOD ADD-ON [facility] [address] [place] [address], [facility] NPRG [facility] [address] [place] [address] * CT Cervical Spine without IV Contrast [...] of the cervical spine. Jake Arias M.D. [facility] PROCEDURES * CT Maxillofacial without IV Contrast (10/01/2023 9:34 PM CDT) Anatomical Region Laterality Modality Jaw, Head, Neuroradiology RS T LOS, Neuroradiology ARZ LOS, Neuroradiology FLA LOS N/A Computed Tomography Impressions 10/01/2023 9:45 PM [...] Advance Directives For more information, please contact: [phone] * Full Code (Latest Code Status on File) Date Activated Date Inactivated Comments 10/02/2023 2:18 AM 10/02/2023 8:51 PM Question Answer Comments Full Code: Discussed Care Teams De Alcoholizer Relationship Specialty Start Date End Date Elsewhere, Pcp PCP - General Internal Medicine 10/01/23
--- OUTSIDE RECORDS SUMMARY | 2023-11-05 14:52 | XMS_ITS | Encounter Summary ---
Author Organization [facility] Address [address] [place] [address] Care Team Providers Care Worm Packer Name Role Phone Elsewhere, Pcp Primary Care Provider Unavailabl e Reason for Visit * Reason Onset Date Comments Referral 10/03/2023 Encounter Details Date Type Department Care Team (Late st Contact Info) Description 10/03/2023 Clinical Communication Department of Neurological Surgery in [address] [phone] Lucy Mendoza RHaydenNHayden Referral Social History Tobacco Use Types Packs/Day Years Used Date Smoking Tobacco: Never Smokeless Tobacco: Never Alcohol Use Standard Drinks/Week Comments Yes 0 (1 standard drink = 0.6 oz pur e alcohol) [facility] Utilities Answer Date Recorded In the past 12 months has e electric, gas, oil, or water company threatened to shut off services in your [...] your living situation today? I have a [facility] place to live 10/02/2023 Sex and Gender Information Value Date Recorded Sex Assigned at Not on file Gender Identity Not on file Sexual Orientation Not on file documented as of this encounter Miscellaneous Notes * Telephone Encounter - Lucy Mendoza R.N. - 10/03/2023 6:29 AM CDT Please triage, thank you. Referring provider: Manuel Lee M.D. Diagnosis: -Subarachnoid Hemorrhage With Loss Of Conscious Initial Traumatic Subdural Hemorrhage With Loss Of Consciousness Of 30 Minutes Or Less Initial Initial medical spine specialty/specialties requested: AUTUMN Recent Images/Tests: Last Imaging Result 10/02/[address] IMPRESSION: 1. Since earlier today at 0020, no significant interval change in the small volume acute subdural and subarachnoid hemorrhage as described. No new area of acute intracranial hemorrhage. No mass effect. 2. The known left orbital blowout fractures better demonstrated on 10/01/[address] CT CERVICAL SPINE WITHOUT IV CONTRAST 10/01/2023 10/01/2023 9:55 PM Impression No acute fracture or malalignment of the cervical spine. Tobacco History: Non smoker Most Recent BMI: BMI Readings from Last 1 Encounters: 10/02/23 25.10 kg/m?? Final triage recommendations: Please select one of the following: AUTUMN CONS documented in this encounter Plan of Treatment Not on file documented as of this encounter Visit Diagnoses Not on filedocumented in this encounter Care Teams Worm Packer Relationship Specialty Start Date End Date Elsewhere, Pcp PCP - General Internal Medicine 10/01/23 documented as of this encounter
--- OUTSIDE RECORDS SUMMARY | 2023-11-05 14:52 | XMS_ITS | Encounter Summary ---
Author Organization [facility] Address [address] [place] [address] Care Team Providers Care Senior C Software Engineer Name Role Phone Elsewhere, Pcp Primary Care Provider Unavailabl e Reason for Referral * Outpatient (Routine) - Closed Specialty Diagnoses / Procedures Referred By Leander sullivan Referred To Contact Neurological Surgery Diagnoses Subarachnoid [...] Closed Initial Left (HCC) Manuel Lee M.D. [address] [place] [address] [facility] Region Referral ID Status Reason Start Date Expiration Date Visits Re quested Visits Authorized [id number] Closed 10/02/2023 04/02/2025 1 1 * MRI/CAT/PET Scan (Routine) - Pending Review Specialty Diagnoses / Procedures Referred By Leander sullivan Referred To Contact Radiology Diagnoses Subarachnoid Hemorrhage With Loss Of Conscious Initial (HCC) Traumatic Subdural Hemorrhage With Loss Of Consciousness Of 30 Minutes Or Less Initial (HCC) Injury Head Initial History Of Falling Laceration Face Initial Alcohol Abuse With Intoxication Unspecified (HCC) Contusion Shoulder Initial Left Fracture Orbital Floor Open Initial Left (HCC) Fracture Orbital Floor Closed Initial Left (HCC) Procedures CT Head without IV Contrast Manuel Lee M.D. [address] [place] [address] [facility] Region Referral ID Status Reason Start Date Expiration Date V isits Requested Visits Authorized [id number] Pending Review 10/02/2023 10/01/2024 1 1 * MRI/CAT/PET Scan (Routine) - Closed Specialty Diagnoses / Procedures Referred By Edilsonac t Referred To Contact Radiology Diagnoses Subarachnoid Hemorrhage With Loss Of Conscious Initial (HCC) Traumatic Subdural Hemorrhage With Loss Of Consciousness Of 30 Minutes Or Less Initial (HCC) Injury Head Initial History Of Falling Laceration Face Initial Alcohol Abuse With Intoxication Unspecified (HCC) Contusion Shoulder Initial Left Fracture Orbital Floor Open Initial Left (HCC) Fracture Orbital Floor Closed Initial Left (HCC) Procedures CT Head without IV Contrast Manuel Lee M.D. [address] [place] [phone] [facility] Referral ID Status Reason Start Date Expiration Date Visits Re quested Visits Authorized [id number] Closed 10/04/2023 11/03/2023 1 1 * Outpatient (Routine) - Authorized Specialty Diagnoses / Procedures Referred By Leander sullivan Referred To Contact [facility] Internal Medicine Manuel Lee M.D. [address] [place] [phone] [facility] Region Referral ID Status Reason Start Date Expiration Date V isits Requested Visits Authorized [id number] Authorized 10/02/2023 04/02/2025 1 1 Reason for Visit * Reason Comments Fall Fell down wooden arturo ps in house. Laceration under left eye. Bump above left eye. * Auth/Cert (Routine) Specialty Diagnoses / Procedures Referred By Leander sullivan Referred To Contact Diagnoses Laceration Face Initial Injury Head Initial Subarachnoid Hemorrhage With Loss Of Conscious Initial (HCC) Contusion Shoulder Initial Left Traumatic Subdural Hemorrhage With Loss Of Consciousness Of 30 Minutes Or Less Initial (HCC) Alcohol Abuse With Intoxication Unspecified (HCC) History Of Falling Procedures OBS Referral ID Status Reason Start Date Expiration Date Visits Re quested Visits Authorized [id number] 1 1 Encounter Details Date Type Department Care Team (Late st Contact Info) Description 10/01/2023 9:03 PM CDT - 10/02/2023 6:40 PM CDT Emergency [facility], Second Floor [address] [place] [address] Jake Arias M.D. [address] [place] [phone] Ingrid Brown APRN, C.N.P., D.N.P. [address] [place] [phone] Manuel Lee M.D. [address] [place] [address] Subarachnoid Hemorrhage With Loss Of Conscious Initial [...] drink = 0.6 oz pur e alcohol) [facility] Utilities Answer Date Recorded In the past 12 months has e [employer], gas, oil, or water [employer] threatened to shut off services in your [...] your living situation today? I have a [facility] place to live 10/02/2023 Sex and Gender Information Value Date Recorded Sex Assigned at Not on file Gender Identity Not on file Sexual Orientation Not on file documented as of this encounter Last Filed Vital Signs Vital Sign Reading Time Taken Comments Blood Pressure 154/88 10/02/2023 6:19 PM CDT Pulse 88 10/02/2023 6:19 PM CDT Temperature 36.3 ??C (97.3 ??F) 10/02/2023 6:19 PM CD T Respiratory Rate 16 10/02/2023 6:19 PM CDT Oxygen Saturation 96% 10/02/2023 6:19 PM CDT Inhaled Oxygen Concentration - - Weight 72.7 kg (160 lb 4.4 oz) 10/02/2023 1:42 A M CDT Height 170.2 cm (5' 7) 10/02/2023 1:42 AM CDT Body Mass Index 25.1 10/02/2023 1:42 AM CDT documented in this encounter Discharge Summaries * Manuel Lee M.D. - 10/02/2023 6:32 PM CDT DISCHARGE SUMMARY BRIEF OVERVIEW Hospital: [facility] Discharge Provider: Manuel Lee M.D. Primary Care Providers: Elsewhere, Pcp (General) No address on file Primary Care Provider Phone Number: None Primary Care Provider Fax Number: None Admission Date: 10/01/2023 Discharge Date: 10/02/2023 PRINCIPAL DIAGNOSIS Subarachnoid Hemorrhage With Loss Of Conscious Initial (HCC) SECONDARY DIAGNOSES Principal Problem: Subarachnoid Hemorrhage With Loss Of Conscious Initial (HCC) Active Problems: Traumatic Subdural Hemorrhage With Loss Of Consciousness Of 30 Minutes Or Less Initial (HCC) History Of Falling Alcohol Abuse With Intoxication Unspecified (HCC) Contusion Shoulder Initial Left Laceration Face Initial Fracture Orbital Floor Open Initial Left (HCC) Resolved Problems: Fracture Orbital Floor Closed Initial Left (HCC) DISCHARGE DISPOSITION Home or Self Care [1] ACTIVE ISSUES REQUIRING FOLLOW UP #1 Subarachnoid Hemorrhage With Loss Of Conscious Initial (HCC) #2 Traumatic Subdural Hemorrhage With Loss Of Consciousness Of 30 Minutes Or Less Initial (HCC) #3 History Of Falling #4 Alcohol Abuse With Intoxication Unspecified (HCC) #5 Contusion Shoulder Initial Left #6 Laceration Face Initial #7 Fracture Orbital Floor Open Initial Left (HCC) -- It is clear that alcohol use has led to severe and life-threatening accidents/injuries. Stronglyrecommend seeking and obtaining help towards alcohol abstinence to prevent future injuries or alcohol associated health problems. -- Complete course of Augmentin to prevent infection given communication between left orbital fracture and sinuses. -- Per neurosurgery, complete the 7 day course of Keppra (levetiracetam) to reduce risk of post head trauma/bleed seizures. -- In 2 days, a repeat CT head as needed to recheck head injury and post- hospitalization follow-up visit with primary care provider/team to recheck clinical/neurological status after recent severe head trauma/fracture. -- In 7 days, neurosurgery recommend another CT head recheck and follow-up at the [facility] neurosurgery clinic. -- Recommend return to the Emergency Department (ED) if symptoms worsen or if any new/concerning symptoms develop. OUTPATIENT FOLLOW UP Scheduled Appointments 10/08/2023 3:00 PM [facility] For appointment details refer to your Patient Appointment Guide. TEST RESULTS PENDING AT DISCHARGE Pending Labs None DETAILS OF HOSPITAL STAY REASON FOR ADMISSION Laceration Face Initial Injury Head Initial Subarachnoid Hemorrhage With Loss Of Conscious Initial (HCC) Contusion Shoulder Initial Left Traumatic Subdural Hemorrhage With Loss Of Consciousness Of 30 Minutes Or Less Initial (HCC) Alcohol Abuse With Intoxication Unspecified (HCC) History Of Falling HOSPITAL COURSE Theresa Krause is a 63 year old female who lived at home with spouse with alcohol abuse history. On 10/01/2023, she presented to the [facility] ED for facial/head trauma after a fall downstairs while under the influence of alcohol. In the ED, significant left facial and left shoulder bruising; hypertensive (183/152) were noted. Laboratory showed ethanol 205. CT cervical spine and leftshoulder x-ray were unremarkable. However, CT head showed subarachnoid hemorrhage, subdural hemorrhage, a left orbital floor fracture communicating with the maxillary sinus. [facility] recommended seizure prophylaxis with Keppra and local admission for serial CT Head imaging. On the floor, serial head CTs remained stable. She did not have nausea, vomiting, dizziness, lightheadedness, and extraocular motion and left eye vision remained intact. Neurosurgery recommended 48 hour and [address] head imaging with follow-up at the [facility] neurosurgery clinic in a week. Maxillofacialtrauma surgery reviewed left orbital fracture and felt no formal specialty follow-up was needed. Spouse and patient were counseled that 24/7 adult supervision was needed over the next 48 hours. In addition, alcohol abuse counseling were provided and resources offered. Since patient insisted on discharge, on 10/02/2023 she was discharged with close outpatient follow-up. 24 HOUR VITALS Temperature: [36 ??C-37.6 ??C] 37.6 ??C Heart Rate: [69-86] 86 Resp Rate: [14-16] 16 Blood Pressure: (109-183)/(62-152) 141/78 SpO2: [90 %-99 %] 94 % Flow Rate (L/min): [0 L/min] 0 L/min Height: [170.2 cm] 170.2 cm Weight: [72.7 kg-74.5 kg] 72.7 kg BSA (Calculated - sq m): [1.85 sq meters] 1.85 sq meters BMI (Calculated): [25.1 kg/m??] 25.1 kg/m?? Pulse Rate: [66-94] [address] Head without IV Contrast Result Date: [...] No new or increasing acute intracranial hemorrhage. DX Shoulder Left 2+ Views Result Date: 10/01/2023 Impression: No acute fracture or malalignment. 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 Osteopenia. CT Cervical Spine without IV Contrast Result [...] with Dr. Arias on 10/01/2023 at 2138. LABORATORY Recent Results (from the past 72 hour(s)) Comprehensive Metabolic Panel Collection Time: 10/01/23 10:05 PM Result Value Potassium, P 3.4 (L) Sodium, P 144 Chloride, P 108 (H) Bicarbonate, P 23 Anion Gap, P 13 BUN (Blood Urea Nitrogen), P 23 (H) Creatinine 0.58 (L) Estimated GFR (eGFR) >90 Calcium, Total, P 9.4 Glucose, P 118 Protein, Total, P 6.7 Albumin, P 4.1 Aspartate Aminotransferase (AST), P 20 Alkaline Phosphatase, P 79 Alanine Aminotransferase (ALT), P 20 Bilirubin, Total, P <0.2 CBC with Differential, Blood Collection Time: 10/01/23 10:05 PM Result Value Hemoglobin 13.2 Hematocrit 40.0 Erythrocytes 4.57 MCV 87.5 RBC Distrib Width 13.6 Platelet Count 296 Leukocytes 6.6 Neutrophils 2.90 Lymphocytes 2.89 Monocytes 0.43 Eosinophils 0.30 Basophils 0.04 Prothrombin Time (PT) Collection Time: 10/01/23 10:05 PM Result Value Prothrombin Time, P 9.6 INR 0.9 APTT (Activated Partial Thromboplastin Time) Collection Time: 10/01/23 10:05 PM Result Value Activated Partial Thrombopl Time, P 28 Ethanol Level, Serum Collection Time: 10/01/23 10:05 PM Result Value Ethanol, P 205 (H) Basic Metabolic Panel Collection Time: 10/02/23 5:50 AM Result Value Potassium, P 4.1 Sodium, P 148 (H) Chloride, P 115 (H) Bicarbonate, P 25 Anion Gap, P 8 BUN (Blood Urea Nitrogen), P 18 Creatinine 0.50 (L) Estimated GFR (eGFR) >90 Calcium, Total, P 9.4 Glucose, P 96 CBC with Differential, Blood Collection Time: 10/02/23 5:50 AM Result Value Hemoglobin 12.8 Hematocrit 38.4 Erythrocytes 4.40 MCV 87.3 RBC Distrib Width 13.8 Platelet Count 283 Leukocytes 6.2 Neutrophils 3.25 Lymphocytes 2.29 Monocytes 0.40 Eosinophils 0.24 Basophils <0.04 Basic Metabolic Panel Collection Time: 10/02/23 4:40 PM Result Value Potassium, P 4.3 Sodium, P 144 Chloride, P 110 (H) Bicarbonate, P 27 Anion Gap, P 7 BUN (Blood Urea Nitrogen), P 20 Creatinine 0.61 Estimated GFR (eGFR) >90 Calcium, Total, P 9.5 Glucose, P 84 Magnesium Collection Time: 10/02/23 4:40 PM Result Value Magnesium, P 1.8 CONSULTS ORDERED DURING THIS ADMISSION None CONDITION AT DISCHARGE stable Discharge instructions were provided to the patient and caregiver(s). Total time spent in discharge services today: 50 minutes. Manuel Lee M.D. Family Medicine, [address] [address] documented in this encounter Discharge Instructions * Patient Instructions* Maribel Armstrong L.S.W. - 10/02/2023 11:21 AM CDT Images from the original note were not included. Alcoholics Anonymous [facility] [address] [place] [address]. Sunday. 8:00 pm Sunday Night AA. In-person. Sunday. 9:00 am Sunday Morning [facility]. In-person. [facility] [address] [place] [address] SUNDAY, 9:00 AM - 10:00 AM, SUNDAY, 9:00 AM - 10:00 AM, SUNDAY, 7:00 PM - 8:00 PM Outpatient Treatment [facility]? [address],?[place] [address]? ? [facility]? [address],?[place] [address]? ? 988 Suicide & Crisis Lifeline 988 Anyone can dial or text 988 to reach crisis support or use an online chat feature to connect with crisis support. Connects you with a crisis center in the Lifeline network closest to your location. Your call will be answered by a trained clerical warehouse worker who will listen empathetically and without judgment. The clerical warehouse worker will work to ensure that you feel safe and help identify options and information about mental health services in your area. Your call is confidential and free. [facility] Mobile Crisis Team/24 Hour Crisis Line (Serves Akhil Bell [place], [place], [place], [place], [place], [place] and [facility]) [phone] * Available for 25/12 mental health crisis supports and resources. [facility] Crisis Center (Serves Akhil Bell [place], [place], [place], [place], [place], [place] [facility]) [phone], [place] [address] * Available for crisis residence stabilization and mobile crisis supports. Crisis Response for [facility] (Serves Gordon Knott [place], [place], [facility], [place], [place], [facility], and [facility] [phone] or 603-NXESZT4 * Available for 24/7 mental health crisis supports and resources. Crisis Center [facility] P: [phone] [place] [address] [address], [place] [address] [facility] ([facility]) is a new 24/7 walk-in mental health facility designed specifically for people experiencing a mental health crisis. [facility] is open 24 hours a day, everyday,to people of all ages in the [facility], regardless of your financial situation or insurance status. We help to stabilize your immediate crisis, and develop integrated plans for ongoing care you may need when you leave the center. [facility] also houses short-term residential facilities for those that need longer care. With 16 beds, the center has separate units for adults and youth (ages 10-18), has 24/7 nursing staff and supervision, individual and group counseling, and care coordination upon discharge. [facility] Warmline Open Sunday-Sunday 12PM to 10PM [phone] or [phone] or Text ???support?? to [phone] *Calls are answered by a Event Manager who have first-hand experience living with a mental health condition Mental Health Helpline at or online at www.mentalhealthmn.org The [facility] HelpLine can be reached Sunday through Sunday, 10 am-6 pm, ET. [phone] ([phone]) or [email or web address] HelpLine staff and volunteers are prepared to answer your questions about mental health issues including: Symptoms of mental health conditions Treatment options Local support groups and services Education programs Helping family members get treatment Programs to help find jobs Legal issues (the [facility] Legal Resource Service can connect individuals with attorneys in their area but does not have the resources to provide individual representation) Note: We are unable to provide counseling or therapy, cannot provide specific recommendations for things like treatment or do individual casework, legal representations or other individual advocacy. In the event of a crisis call, we will transfer callers in crisis or who express suicidal ideation to a national crisis line to provide further assistance. Crisis Text Line Text JAMAICA to [phone] [facility] Helpline 25/12 Confidential Line Call Text mia to 729464 Email: [email or web address]. [employer] MemberConnection Hotline (youth specific crisis resource) Text: VOICE to Chat: Spoke.org Download the Mood Brannon: ???My Life My Voice?? National Drug Abuse Helpline [place] Harm Reduction Team For Support Services Call: [address] [facility] [address] P: [phone] - Available 25/12, call or text Quit Nicotine Quit Partner - Free Help to Quit Your Way (quitpartnerTransphorm.[employer]) National Eating Disorder Association Helpline Adaptive Payments Variety of services via telehealth: Opioid Use Disorder; Substance Abuse Treatment; Eating DisorderTreatment; Chronic Pain https://www.StyleJam/ Doctor on Demand Members can connect with Doctor on Demand doctors and psychologists from their phone, tablet, or computer on demand or by appointment 25/12, 365 days a year. Through live video, doctors review symptoms, medications, perform an exam and may recommend treatment - including prescriptions and lab work. https://www.CPG Soft/ *Credit card no longer necessary to access the system. Learn To Live Online, on demand, self-paced, Cognitive Behavior Therapy from any device. Members experiencing mild to moderate issues can complete an assessment or begin support services. Online clinical assessments, programs and resources for Stress, Anxiety & Worry, Depression, Insomnia, Social Anxiety & Substance Use. Effective tools to help you understand how your mind works and change your behavior patterns. 25/12. Self-paced, private & confidential. Ability to start, stop, save, and restart your progress. No cost to eligible Blue Plus members (ages 13-64). As effective as in-person therapy. Coaching available (phone, email, text) https://Provender.[employer]/SoCAT Peer Support Connection Warmline - Warmlines deliver help before a mental health crisis heats up. The [facility] Warmline provides early intervention with emotional support that can prevent a crisis, a 911 call, or ER visit. Operating from 5:00 PM to 9:00 AM, seven days a week, 365 days per year, Certified Peer Support Specialists and Recovery Coaches provide confidential and anonymous 1:1 text or telephone peer support for individuals who are NOT in a crisis but still need someone to talk to. They may be lonely, working through a struggle, have questions about mental illness, need help problem-solving, or just want to chat. Individuals can call or text the [facility] Warmline at . documented in this encounter Medications at Time of Discharge Medication Sig Dispensed Refills Start Date End Date levETIRAcetam (KEPPRA) 1,000 mg tablet Take 1 tablet (1,000 mg total) by mouth 2 (two) times a day for 13 doses. To prevent seizure from known intracranial bleed. 13 tablet 10/02/2023 lutein-zeaxanthin 25-5 mg capsule Take by mouth. 05/23/2016 skgtwfwnhlxu-Yu-vqxl-mi nerals 27-0.4 mg tablet Take 1 tablet by mouth daily. 04/20/2017 vit27,calcium/iron/FA (multivitamin/mineral-p renatal) tablet Take 1 tablet by mouth daily. Health maintenance. 90 tablet 3 10/03/2023 acetaminophen (TYLENOL) 500 mg tablet Take 2 tablets (1,000 mg total) by mouth 3 (three) times a day. 60 tablet 2 10/02/2023 ondansetron ODT (ZOFRAN-ODT) 4 mg disintegrating tablet Dissolve 1 tablet (4 mg total) in the mouth every 8 (eight) hours as needed for nausea or vomiting. 20 tablet 10/02/2023 amoxicillin-pot clavulanate (AUGMENTIN) 875-125 mg per tabletIndications:Proph ylaxis, surgical Take 1 tablet by mouth every 12 (twelve) hours for 8 doses Indications: Prophylaxis, surgical. Infection prevention given Left orbital fracture. 8 tablet 10/02/2023 10/06/2023 documented as of this encounter Progress Notes * Maribel Armstrnog L.SBindu - 10/02/2023 11:09 AM CDT SUBJECTIVE Patient is a 63 y.o. female who was admitted to [facility] 10/01/2023 due to Laceration Face Initial [S01.81XA] Injury Head Initial [S09.90XA] Subarachnoid Hemorrhage With Loss Of Conscious Initial (HCC) [S06.6X9A] Contusion Shoulder Initial Left [S40.012A] Traumatic Subdural Hemorrhage With Loss Of Consciousness Of 30 Minutes Or Less Initial (HCC) [S06.5X1A] Alcohol Abuse With Intoxication Unspecified (HCC) [F10.129] History Of Falling [Z91.81]. Social work assisting with discharge planning and resources. OBJECTIVE Patient Active Problem List Diagnosis Subarachnoid Hemorrhage With Loss Of Conscious Initial (HCC) Traumatic Subdural Hemorrhage With Loss Of Consciousness Of 30 Minutes Or Less Initial (HCC) History Of Falling Alcohol Abuse With Intoxication Unspecified (HCC) Contusion Shoulder Initial Left Laceration Face Initial Fracture Orbital Floor Open Initial Left (HCC) ASSESSMENT / PLAN ASSESSMENT Patient was not formally assessed by this commercial loan underwriter. INTERVENTION Social work participated in bedside team rounding. Patient, spouse, provider and nursing present. Provider had discussed patients alcohol use and concerns. Patient and spouse were open with discussion. They reported that they were both working on it. Social work inquired if this commercial loan underwriter could discuss resources with the patient. Patient declined. Patient was open to this commercial loan underwriter placing resources in her discharge summary in case she needs them. Social work provided resources in the after visit summary. PLAN 1. Social work will assist as needed and requested. Harper White 10/02/23 documented in this encounter H&P Notes * Ingrid Brown, LEON, C.N.P., D.N.P. - 10/02/2023 2:29 AM CDT Date of Admission: 10/01/2023 LOS: 0 days Primary Care Physician: ELSEWHERE, PCP SUBJECTIVE REASON FOR ADMISSION: Subarachnoid Hemorrhage With Loss Of Conscious Initial (HCC) HISTORY OF PRESENT ILLNESS Theresa Krause is a 63 y.o. female with no past medical history who presented to the emergency department for evaluation of left facial laceration after sustaining a fall at home. She reports she was going to the bathroom and missed a step and fell down the steps. She has no recollection of the fall. She reports she was able to call her for help. She admits to drinking3-4 beers last evening. She endorses left shoulder and eye pain. Denies headache, nausea, vomiting,dizziness, lightheadedness, chest pain, shortness of breath. Upon presentation to the emergency department, patient was afebrile, hypertensive (183/152), heart rate 76, respirations 16, SPO2 98% on room air. Laboratory workup was notable for potassium 3.4, chloride 108, BUN 23, creatinine 0.58, ethanol 205, rest was unremarkable. CT cervical spine and left shoulder x-ray were negative. CT head showed subarachnoid hemorrhage and subdural hemorrhage, and also a left orbital floor fracture communicating with the maxillary sinus. ER provider consulted with on-call neurosurgery, Dr. Murdock who recommended seizure prophylaxis with Keppra and repeating CT in [address] head was negative. Patient will be admitted for further management per neurosurgery recommendations. Upon arrival to the unit, patient is alert and oriented x's 3, in no acute distress. She endorses left shoulder pain. She denies nausea, vomiting, headache, dizziness, lightheadedness, shortness of breath,chest pain. Of note patient lives at home with the . REVIEW OF SYSTEMS Constitutional: No fever/chills/night sweats. Weight stable. Ears, nose, mouth, throat, and face: No sore throat, nasal discharge. Left eye swelling and pain Respiratory: No shortness of breath/wheezing/cough. Cardiovascular: No chest pain/palpitations/orthopnea/PND. Gastrointestinal: No abdominal pain, nausea, vomiting, diarrhea, constipation, melena, hematochezia. Genitourinary: No dysuria or changes in normal urinary habits. Integument: No rashes or easy bruising. Musculoskeletal: Positive for left shoulder pain Neurological: No dizziness, LR, LOC, focal weakness, numbness/tingling. ALLERGIES/CONTRAINDICATIONS No Known Allergies CURRENT MEDICATIONS Active Home Medications Not on File Patient History MEDICAL HISTORY Patient Active Problem List Diagnosis Subarachnoid Hemorrhage With Loss Of Conscious Initial (HCC) History reviewed. No pertinent past medical history. SURGICAL HISTORY History reviewed. No pertinent surgical history. FAMILY HISTORY No family history on file. SOCIAL HISTORY Social History Tobacco Use Smoking status: Never Smokeless tobacco: Never Substance Use Topics Alcohol use: Yes OBJECTIVE VITAL SIGNS BP 131/76 (BP Location: Right arm;Upper, Patient Position: Lying) Pulse 69 Temp 36.4 ??C (Temporal) Resp 16 Ht 170.2 cm Wt 72.7 kg SpO2 95% BMI 25.10 kg/m?? PHYSICAL EXAMINATION General: Alert and Oriented x's 3, in no acute distress. HEENT: Normocephalic, atraumatic. Significant swelling to the left eye. Unable to open left eye. Oral mucosa dry. Neck: Supple. No lymphadenopathy. Cardiovascular: Normal S1/S2. No murmurs. Lungs: Clear to Auscultation Abdomen: Soft, nontender, nondistended. Positive bowel sounds. Skin: Bruising noted on left shoulder. Extremities: No bilateral lower extremity edema. Neurological: Grossly intact. No intake or output data in the 24 hours ending 10/02/23 0229 DIAGNOSTICS Data Review CBC: Results from last 7 days Lab Units 10/01/23 2205 WBC x10(9)/L 6.6 HEMOGLOBIN g/dL 13.2 HEMATOCRIT % 40.0 PLATELETS AUTO x10(9)/L 296 BMP: Results from last 7 days Lab Units 10/01/23 2205 SODIUM P mmol/L 144 CHLORIDE P mmol/L 108* BUN P mg/dL 23* CREATININE mg/dL 0.58* CALCIUM P mg/dL 9.4 Coagulation: Results from last 7 days Lab Units 10/01/23 2205 INR 0.9 Cardiac Markers: Liver Panel: Results from last 7 days Lab Units 10/01/23 2205 ALBUMIN P g/dL 4.1 AST P U/L 20 ALT P U/L 20 ALK PHOS P U/L 79 BILIRUBIN TOTAL P mg/dL <0.2 Microbiology: No results found for this visit on 10/01/23 (from the past 72 hour(s)). EKG: Radiology: CT Head without IV Contrast Final Result Unchanged small volume acute parafalcine subarachnoid and thin subdural hemorrhage. No new or increasing acute intracranial hemorrhage. DX Shoulder Left 2+ Views Final Result No acute fracture or malalignment. 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 Osteopenia. CT Cervical Spine without IV Contrast Final Result No acute fracture or malalignment of the cervical spine. CT Maxillofacial without IV Contrast Final Result 1. Acute left parafalcine subarachnoid hemorrhage. 2. Small acute right parafalcine subdural hematoma. 3. Acute blowout fracture of the left orbital floor. 4. Left periorbital soft tissue contusion. Findings discussed with Dr. Arias on 10/01/[address] Head without IV Contrast Final Result 1. Acute left parafalcine subarachnoid hemorrhage. 2. Small acute right parafalcine subdural hematoma. 3. Acute blowout fracture of the left orbital floor. 4. Left periorbital soft tissue contusion. Findings discussed with Dr. Arias on 10/01/[address] Head without IV Contrast (Results Pending) ASSESSMENT / PLAN Theresa Krause is a 63 y.o. female who was admitted for subarachnoid hemorrhage, subdural hemorrhage, and alcohol intoxication. #1 Subarachnoid Hemorrhage With Loss Of Conscious Initial (HCC) #2 Traumatic Subdural Hemorrhage With Loss Of Consciousness Of 30 Minutes Or Less Initial (HCC) #3 Laceration Face Initial #4 Fracture Orbital Floor Open Initial Left (HCC) #5 Contusion Shoulder Initial Left #6 Alcohol Abuse With Intoxication Unspecified (HCC) Presented to the ER after sustaining a fall at home. CT head showed subarachnoid hemorrhage and subdural hemorrhage. She also has a left orbital floor fracture communicating with the maxillary sinus. CT cervical spine and left shoulder x-ray were negative. In the ER, she received loading dose of Keppra 1500 mg per neurosurgery recommendations and Augmentin. PLAN: -Per neurosurgery recommendations, start Keppra 1000 mg Q 12 hours x 7 days, SBP <160, repeat CThead in 7 days with outpatient neurosurgery follow up. -Continue Augmentin 875-125 mg, 1 tablet Q 12 hours x 5 days. -Neuro checks. -Cardiac Monitoring. -Repeat CT head in the morning, contact neurosurgery with any significant changes. -Seizure precautions. -CILA protocol. -Oxycodone p.r.n for pain management. -Monitor daily labs, vitals, Intake/Output. -Case management to help with discharge management. ANTICOAGULANTS/DVT PROPHYLAXIS: SCD's DIET: Current Diet Adult Diet Regular starting at 10/01 214 INFUSIONS: LDA:Peripheral IV Paz Catheter Present?: No. CODE STATUS: Full Code Discharge Planning: Prior to this hospitalization this patient lived at home with her . Discharge in 2-3 days when medically stable. Barriers:Medical complexity. Communication: Plan of care was discussed with the patient and the bedside nurse. All questions andconcerns were addressed. ADMINISTRATIVE BILLING Total time spent 55 minutes, Greater than 50% spent in counseling and coordination of care. Ingrid Brown APRN, C.N.P., D.N.P. documented in this encounter Nursing Notes * Soumya Rose R.N. - 10/02/2023 6:44 PM CDT INPATIENT NURSING DISCHARGE SUMMARY Discharge Provider: Manuel Lee M.D. Admission Date: 10/01/2023 Discharge Date: 10/02/2023 10/02/2023 DISCHARGE DISPOSITION Home/Self Care CONDITION AT DISCHARGE stable TREATMENTS None DEVICES/EQUIPMENT None PROFESSIONAL SKILLED SERVICES None MODE OF DISCHARGE Wheelchair TRANSPORTATION Private Vehicle ACCOMPANIED BY AVIATION SUPPORT EQUIPMENT REPAIRER All belongings sent home with patient. Electronically signed by: Soumya Rose R.N. 10/02/23 6:45 PM CDT * Soumya Rose R.N. - 10/02/2023 6:11 PM CDT Problem: PAIN - ADULT Goal: PT VERBALIZES/DEMONSTRATES ADEQUATE COMFORT LEVEL OR BASELINE Outcome: Adequate for Discharge Note: Patient complaining of headache/left eye pain 4-7/10 this shift. Patient given PRN oxycodone 5 mg X 2 this shift for management. Staff also applying ice to painful areas. Per patient interventions effective. Problem: KNOWLEDGE DEFICIT Goal: Patient/family/caregiver demonstrates understanding of disease process, treatment plan, medications, and discharge instructions Outcome: Adequate for Discharge Note: Education provided to patient regarding pain management at home. Patient acknowledging education. Problem: INFECTION - ADULT Goal: Absence of infection during hospitalization Outcome: Adequate for Discharge Problem: SKIN/TISSUE INTEGRITY Goal: Skin/Tissue integrity maintained or improved Outcome: Adequate for Discharge Goal: Oral and Nasal mucous membranes remain intact Outcome: Adequate for Discharge Problem: SAFETY ADULT Goal: Maintain a safe environment Outcome: Adequate for Discharge Note: Patient remaining free of falls this shift. Remaining safe this shift. Bed alarm used for safety. Call light is within reach. Problem: DISCHARGE PLANNING Goal: Patient discharge needs identified Outcome: Adequate for Discharge Problem: SAFETY ADULT - RISK FOR FALL AND OR FALL INJURY Goal: Patient remains free from fall/fall injury Outcome: Adequate for Discharge Shift Goals: Clinical Goals for the Shift: Wait for CT results, pain management, safety Identify possible barriers to meeting goals/advancing plan of care: None End of Shift Summary: Patient had CT completed this morning. MD in and reviewed results for patient. No changes in bleeding from previous CT scans. MD consulting with neurosurgery and patient able todischarge home this evening. VSS. Neuros and CIWAs completed q4h and are WNLs. MD in to see patientabout followup appointments after discharge. Electronically signed by: Soumya Rose R.N. 10/02/23 6:14 PM CDT * Nellie Dawn R.N. - 10/02/2023 5:00 AM CDT Shift Goals: Clinical Goals for the Shift: Safety, rest, neuro checks, CIWA, pain management Identify possible barriers to meeting goals/advancing plan of care: pending CT results in morning End of Shift Summary: Patient CIWA have been 0 consecutively so can complete Q4h. Neuro q4h remain unchanged. Patient on continuous tele, normal sinus rhythm. Nursing will continue to monitor. Problem: PAIN - ADULT Goal: PT VERBALIZES/DEMONSTRATES ADEQUATE COMFORT LEVEL OR BASELINE Outcome: Progressing Note: Patient experiencing moderate pain. Patient given ice pack with relief Problem: SAFETY ADULT Goal: Maintain a safe environment Outcome: Progressing Note: Patient A&O x 3 and call light appropriate. VSS on RA. Bed alarm on for safety. Problem: SAFETY ADULT - RISK FOR FALL AND OR FALL INJURY Goal: Patient remains free from fall/fall injury Outcome: Progressing Note: Patient remained free from falls. Transfers stand by assist Electronically signed by: Nellie Dawn R.N. 10/02/23 5:02 AM CDT documented in this encounter ED Notes * Jake Arias M.D. - 10/01/2023 9:10 PM CDT CHIEF COMPLAINT/REASON FOR VISIT (RN note) Fall (Fell down wooden steps in house. Laceration under left eye. Bump above left eye.) HISTORY OF PRESENT ILLNESS Theresa Krause is a 63 y.o. female who presents to the ED for evaluation of left facial laceration and pain to the left cheek after she fell down a few steps and suspected distract the wall at the bottom. She does admit to drinking some alcohol tonight but states that she was getting ready to go to bed and does not remember the entire incident. She was able to call for help and her significant other assisted her but she states that she was able to stand up on her own. Additionally, she has some pain to the posterior left shoulder. Denies any other substance abuse and denies any medications or other medical history. Past medical history: Reviewed in the EMR. Agree with nursing documentation. Pertinent past medicalhistory noted per HPI. History reviewed. No pertinent past medical history. Social history: Reviewed in the EMR. Agree with nursing documentation. Pertinent social history noted per HPI. Social History Tobacco Use Smoking status: Unknown REVIEW OF SYSTEMS Constitutional: As noted in the HPI, otherwise negative. Eyes: As noted in the HPI, otherwise negative. HEENT: As noted in the HPI, otherwise negative. CV: As noted in the HPI, otherwise negative. Resp: As noted in the HPI, otherwise negative. GI: As noted in the HPI, otherwise negative. : As noted in the HPI, otherwise negative. MSK: As noted in the HPI, otherwise negative. Skin: As noted in the HPI, otherwise negative. Neuro: As noted in the HPI, otherwise negative. PHYSICAL EXAMINATION Initial Vitals Temperature 10/01/232104 36 ??C Pulse Rate 10/01/232104 76 Heart Rate -- Resp Rate 10/01/232104 16 Blood Pressure 10/01/232104 (!) 183/152 SpO2 10/01/232104 98 % Pain Score 10/01/232107 0 - No pain General: Awake, alert, oriented x3. Not specifically in distress secondary to the pain but she was intoxicated and repeats her questions. Blood pressure elevated. Head: Normocephalic, ptosis to the right upper eyelid, laceration to the left cheek, denies tenderness. Eyes: Normal sclerae and conjunctivae, extraocular movements intact. Ptosis to the left upper eyelid. Periorbital edema to the left but not much specifically to the eyelids, primarily to the left cheek area where she has a laceration. Pupils are equal, round, reactive to light. She has nystagmus with leftward gaze. She denies any diplopia. No skew deviation. ENT: Oropharynx is clear, moist mucus membranes. Neck: Supple, full range of motion, trachea midline. No tenderness. No step-offs. Heart: Regular rate and rhythm. No murmurs, gallops, or rubs. Lungs: Clear to auscultation bilaterally. No wheezing, rales, or rhonchi. Abd: Soft, nontender, nondistended. Back: Normal to inspection, nontender, no costovertebral angle tenderness. Ext: Warm, well-perfused. Ecchymosis to the left posterior shoulder. CMS intact distally. Skin: Warm, dry, normal color. No rashes. Neuro: Awake, alert, GCS 14, cranial nerves II-XII grossly intact, normal strength/sensation x4 without focal deficits. Psych: Acutely intoxicated. MEDICAL DECISION MAKING / ED COURSE: Differential diagnoses: Contusion, laceration, intracranial hemorrhage, alcohol abuse 63-year-old female comes to the emergency department complaining of a laceration to the left side of her face, loss of consciousness secondary to a fall down some steps. She was found to have subarachnoid hemorrhage and subdural hemorrhage on CT scan. She also has an orbital floor fracture communicating with the maxillary sinus. She admits to using alcohol every day and does not take any other medication, specifically no blood thinners. She denies any history of withdrawal and specifically no previous seizures. I discussed the case with the neurosurgeon on-call in [place] who recommends [address] and seizure prophylaxis with Keppra. She was given 1500 mg IV Keppra and one dose of Augmentin for aopen fracture of the face. vitamin folate as well as thiamine 100 mg given as well. She declined any further analgesia. Her laceration was repaired according to the procedure note below. After a repeat head CT was negative, I discussed the case with the hospitalist who agreed to watch the patient overnight, repeat head CT again in the morning (3rd CT) and evaluate clinically after she was sober. BP less than 160 systolic. She should continue Keppra for the next seven days and a repeat head CT in seven days with neurosurgery follow up. I would also recommend Augmentin for the nextfive days. -- Nursing documentation and prior records reviewed in the medical record. -- External documents reviewed. -- I personally reviewed by visualization, interpreted, and discussed with the patient the results of labs and imaging studies as reported in the medical record. Medications sodium chloride 0.9 % injection 3 mL (has no administration in time range) sodium chloride 0.9 % injection 10 mL (has no administration in time range) sodium chloride 0.9 % injection 3 mL (has no administration in time range) labetalol injection 10 mg (NORMODYNE,TRANDATE) (10 mg intravenous Not Given 10/01/232336) amoxicillin-pot clavulanate 875-125 mg per tablet 1 tablet (AUGMENTIN) (1 tablet oral Given ) Tdap: Ophisbi-pidbzgdfiy-clkivlyac pertussis (PF) vaccine 0.5 mL (0.5 mL intramuscular Given 10/01/232111) NaCl 0.9 % bolus 1,000 mL (0 mL intravenous Stopped 10/01/232258) lidocaine-EPINEPHrine 1 %-1:100,000 injection 10 mL (XYLOCAINE W/EPI) (10 mL infiltration Given 10/01/232230) levETIRAcetam in NaCl (iso osm) IVPB 1,500 mg (Keppra) (0 mg intravenous Stopped 10/01/232258) thiamine tablet 100 mg (VITAMIN B1) (100 mg oral Given 10/01/232315) multivitamin/mineral- tablet 1 tablet (1 tablet oral Given 10/01/232314) PROCEDURES: Laceration Repair Confirmed: Patient, procedure, side, and site correct. Consent: patient and significant other has given verbal consent. Description/ repair Location: left cheek Size: 4.8 cm Shape: curvilinear. Depth: subcutaneous. Details: clean. Neurovascular/ tendon exam: intact. Anesthesia: Lidocaine with epinephrine, local and infraorbital nerve block Skin closure: Simple, interrupted technique. Complexity: single layer. Suture material: 5-0 Ethilon Post procedure exam: Circulation, motor, sensory examination intact. Complications: None. Patient tolerated: Well. * * CRITICAL CARE * * CRITICAL CARE: 90 minutes exclusive of procedures but including obtaining history, bedside examination, supervision of care, record review and collateral history from other parties, documentation, review/interpretation of imaging and lab results, discussion with patient, family, nursing, ancillary staff, consultants, and admitting service provider. This patient presented with SAH and SDH requiring immediate bedside evaluation and intervention to prevent sudden, clinically significant, or life threatening deterioration in the patient's condition. FINAL DIAGNOSIS: 1. Subarachnoid Hemorrhage With Loss Of Conscious Initial (HCC) 2. Traumatic Subdural Hemorrhage With Loss Of Consciousness Of 30 Minutes Or Less Initial (HCC) 3. Injury Head Initial 4. History Of Falling 5. Laceration Face Initial 6. Alcohol Abuse With Intoxication Unspecified (HCC) 7. Contusion Shoulder Initial Left DIAGNOSTIC RESULTS Labs Reviewed COMPREHENSIVE METABOLIC PANEL, S/P - Abnormal Result Value Potassium, P 3.4 (*) Sodium, P 144 Chloride, P 108 (*) Bicarbonate, P 23 Anion Gap, P 13 BUN (Blood Urea Nitrogen), P 23 (*) Creatinine 0.58 (*) Estimated GFR (eGFR) >90 Calcium, Total, P 9.4 Glucose, P 118 Protein, Total, P 6.7 Albumin, P 4.1 Aspartate Aminotransferase (AST), P 20 Alkaline Phosphatase, P 79 Alanine Aminotransferase (ALT), P 20 Bilirubin, Total, P <0.2 ETHANOL, S - Abnormal Ethanol, P 205 (*) CBC WITH DIFFERENTIAL, B Hemoglobin 13.2 Hematocrit 40.0 Erythrocytes 4.57 MCV 87.5 RBC Distrib Width 13.6 Platelet Count 296 Leukocytes 6.6 Neutrophils 2.90 Lymphocytes 2.89 Monocytes 0.43 Eosinophils 0.30 Basophils 0.04 PROTHROMBIN TIME (PT), P Prothrombin Time, P 9.6 INR 0.9 ACTIVATED PARTIAL THROMBOPLASTIN TIME (APTT), P Activated Partial Thrombopl Time, P 28 CT Head without IV Contrast Final Result Unchanged small volume acute parafalcine subarachnoid and thin subdural hemorrhage. No new or increasing acute intracranial hemorrhage. DX Shoulder Left 2+ Views Final Result No acute fracture or malalignment. 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 Osteopenia. CT Cervical Spine without IV Contrast Final Result No acute fracture or malalignment of the cervical spine. CT Maxillofacial without IV Contrast Final Result 1. Acute left parafalcine subarachnoid hemorrhage. 2. Small acute right parafalcine subdural hematoma. 3. Acute blowout fracture of the left orbital floor. 4. Left periorbital soft tissue contusion. Findings discussed with Dr. Arias on 10/01/[address] Head without IV Contrast Final Result 1. Acute left parafalcine subarachnoid hemorrhage. 2. Small acute right parafalcine subdural hematoma. 3. Acute blowout fracture of the left orbital floor. 4. Left periorbital soft tissue contusion. Findings discussed with Dr. Arias on 10/01/2023 at 2138. Notes are completed with voice recognition dictation software. Errors are generally corrected in real-time. Please message me via [employer] In Basket if you note any areas requiring clarification. Jake Arias M.D. 10/02/23 0138 documented in this encounter Miscellaneous Notes * Hospital Course - Manuel Lee M.D. - 10/02/2023 5:43 PM CDT Theresa Krause is a 63 year old female who lived at home with spouse with alcohol abuse history. On 10/01/2023, she presented to the [facility] ED for facial/head trauma after a fall downstairs while under the influence of alcohol. In the ED, significant left facial and left shoulder bruising; hypertensive (183/152) were noted. Laboratory showed ethanol 205. CT cervical spine and leftshoulder x-ray were unremarkable. However, CT head showed subarachnoid hemorrhage, subdural hemorrhage, a left orbital floor fracture communicating with the maxillary sinus. [facility] recommended seizure prophylaxis with Keppra and local admission for serial CT Head imaging. On the floor, serial head CTs remained stable. She did not have nausea, vomiting, dizziness, lightheadedness, and extraocular motion and left eye vision remained intact. Neurosurgery recommended 48 hour and [address] head imaging with follow-up at the [facility] neurosurgery clinic in a week. Maxillofacialtrauma surgery reviewed left orbital fracture and felt no formal specialty follow-up was needed. Spouse and patient were counseled that 24/7 adult supervision was needed over the next 48 hours. In addition, alcohol abuse counseling were provided and resources offered. Since patient insisted on discharge, on 10/02/2023 she was discharged with close outpatient follow-up. 24 HOUR VITALS Temperature: [36 ??C-37.6 ??C] 37.6 ??C Heart Rate: [69-86] 86 Resp Rate: [14-16] 16 Blood Pressure: (109-183)/(62-152) 141/78 SpO2: [90 %-99 %] 94 % Flow Rate (L/min): [0 L/min] 0 L/min Height: [170.2 cm] 170.2 cm Weight: [72.7 kg-74.5 kg] 72.7 kg BSA (Calculated - sq m): [1.85 sq meters] 1.85 sq meters BMI (Calculated): [25.1 kg/m??] 25.1 kg/m?? Pulse Rate: [66-94] [address] Head without IV Contrast Result Date: [...] No new or increasing acute intracranial hemorrhage. DX Shoulder Left 2+ Views Result Date: 10/01/2023 Impression: No acute fracture or malalignment. 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 Osteopenia. CT Cervical Spine without IV Contrast Result [...] with Dr. Arias on 10/01/2023 at 2138. LABORATORY Recent Results (from the past 72 hour(s)) Comprehensive Metabolic Panel Collection Time: 10/01/23 10:05 PM Result Value Potassium, P 3.4 (L) Sodium, P 144 Chloride, P 108 (H) Bicarbonate, P 23 Anion Gap, P 13 BUN (Blood Urea Nitrogen), P 23 (H) Creatinine 0.58 (L) Estimated GFR (eGFR) >90 Calcium, Total, P 9.4 Glucose, P 118 Protein, Total, P 6.7 Albumin, P 4.1 Aspartate Aminotransferase (AST), P 20 Alkaline Phosphatase, P 79 Alanine Aminotransferase (ALT), P 20 Bilirubin, Total, P <0.2 CBC with Differential, Blood Collection Time: 10/01/23 10:05 PM Result Value Hemoglobin 13.2 Hematocrit 40.0 Erythrocytes 4.57 MCV 87.5 RBC Distrib Width 13.6 Platelet Count 296 Leukocytes 6.6 Neutrophils 2.90 Lymphocytes 2.89 Monocytes 0.43 Eosinophils 0.30 Basophils 0.04 Prothrombin Time (PT) Collection Time: 10/01/23 10:05 PM Result Value Prothrombin Time, P 9.6 INR 0.9 APTT (Activated Partial Thromboplastin Time) Collection Time: 10/01/23 10:05 PM Result Value Activated Partial Thrombopl Time, P 28 Ethanol Level, Serum Collection Time: 10/01/23 10:05 PM Result Value Ethanol, P 205 (H) Basic Metabolic Panel Collection Time: 10/02/23 5:50 AM Result Value Potassium, P 4.1 Sodium, P 148 (H) Chloride, P 115 (H) Bicarbonate, P 25 Anion Gap, P 8 BUN (Blood Urea Nitrogen), P 18 Creatinine 0.50 (L) Estimated GFR (eGFR) >90 Calcium, Total, P 9.4 Glucose, P 96 CBC with Differential, Blood Collection Time: 10/02/23 5:50 AM Result Value Hemoglobin 12.8 Hematocrit 38.4 Erythrocytes 4.40 MCV 87.3 RBC Distrib Width 13.8 Platelet Count 283 Leukocytes 6.2 Neutrophils 3.25 Lymphocytes 2.29 Monocytes 0.40 Eosinophils 0.24 Basophils <0.04 Basic Metabolic Panel Collection Time: 10/02/23 4:40 PM Result Value Potassium, P 4.3 Sodium, P 144 Chloride, P 110 (H) Bicarbonate, P 27 Anion Gap, P 7 BUN (Blood Urea Nitrogen), P 20 Creatinine 0.61 Estimated GFR (eGFR) >90 Calcium, Total, P 9.5 Glucose, P 84 Magnesium Collection Time: 10/02/23 4:40 PM Result Value Magnesium, P 1.8 documented in this encounter Plan of Treatment Scheduled Orders Name Type Priority Associated Diagnoses Orde r Schedule CT Head without IV Contrast Imaging RAD - Routine (most inpatients and all outpatients) Subarachnoid Hemorrhage With Loss Of Conscious Initial (HCC) Traumatic Subdural Hemorrhage With Loss Of Consciousness Of 30 Minutes Or Less Initial (HCC) Injury Head Initial History Of Falling Laceration Face Initial Alcohol Abuse With Intoxication Unspecified (HCC) Contusion Shoulder Initial Left Fracture Orbital Floor Open Initial Left (HCC) Fracture Orbital Floor Closed Initial Left (HCC) Expected: 10/08/2023, Expires: 12/31/2024 Scheduled Referrals Name Type Priority Associated Diagnoses Orde r Schedule Transitional care post hospital clinic Outpatient Referral Routine 1 Occurrences starting 10/02/2023 until 12/31/2024 Neurological Surgery - General consult (clinic) Outpatient Referral Routine Subarachnoid Hemorrhage With Loss Of Conscious Initial (HCC) Traumatic Subdural Hemorrhage With Loss Of Consciousness Of 30 Minutes Or Less Initial (HCC) Injury Head Initial History Of Falling Laceration Face Initial Alcohol Abuse With Intoxication Unspecified (HCC) Contusion Shoulder Initial Left Fracture Orbital Floor Open Initial Left (HCC) Fracture Orbital Floor Closed Initial Left (HCC) Expected: 10/08/2023, Expires: 12/31/2024 documented as of this encounter Procedures Procedure Name Priority Date/Time Associated Diagnosis Comments MAGNESIUM, S STAT 10/02/2023 4:40 PM CDT BASIC METABOLIC PANEL, S/P STAT 10/02/2023 4:[address] HEAD WITHOUT IV CONTRAST RAD - Routine (most inpatients and all outpatients) 10/02/2023 7:40 AM CDT CBC WITH DIFFERENTIAL, B Routine 10/02/2023 5:50 AM CDT BASIC METABOLIC PANEL, S/P Routine 10/02/2023 5:[address] HEAD WITHOUT IV CONTRAST [...] patients; some inpatients) 10/01/2023 9:34 PM CDT documented in this encounter Results * CT Head without IV Contrast (10/04/2023 2:25 PM CDT) Anatomical Region Laterality Modality Head, Neuroradiology RST [...] new or additional acute intracranial pathology. Manuel LAYTON CT PROCEDURE S * Magnesium (10/02/2023 4:40 PM CDT) Magnesium, P 1.8 1.7 - 2.3 mg/dL 10/02/2023 5:02 PM CDT NPRG Blood (Blood, Venous) 10/02/2023 4:40 PM CDT 10/02/2023 4:44 PM CDT Manuel Lee M.D. LAB BLOOD ADD-ON [facility] [address] [place] [address], [place] NPRG [facility] [address] [place] [address] * (ABNORMAL) Basic Metabolic Panel (10/02/2023 4:40 PM CDT) Potassium, P 4.3 3.6 - 5.2 mmol/L [...] CDT Manuel Lee M.D. LAB BLOOD ADD-ON [facility] [address] [place] [address], [facility] NPRG [facility] [address] [place] [address] * CT Head without IV Contrast (10/02/2023 7:40 AM CDT) Anatomical Region Laterality Modality Head, Neuroradiology RST LOS , Neuroradiology ARZ LOS, Neuroradiology FLA LOS N/A Computed Tomography 10/02/2023 7:38 AM CDT Impressions 10/02/2023 7:58 AM CDT 1. Since earlier today at 0020, no significant interval change in the small volume acute subdural and subarachnoid hemorrhage as described. No new area of acute intracranial hemorrhage. No mass effect. 2. The known left orbital blowout fractures better demonstrated on 10/01/[address] for Narrative 10/02/2023 7:58 AM CDT EXAM: CT HEAD WITHOUT IV CONTRAST COMPARISON: CT head without contrast 10/02/2023 FINDINGS: Since earlier today at 0020, no significant change in the thin acute subdural hematoma overlying the anterior left frontal lobe measuring up to 4 mm in maximal thickness or the small right parafalcine subdural hematoma measuring up to 4 mm. No significant change in the small volume left parafalcine acute subarachnoid hemorrhage. No new area of acute intracranial hemorrhage or extra-axial fluid collection. No mass effect. No evidence of acute large vessel territory ischemic infarct. Mild leukoaraiosis. Moderate generalized cerebral and cerebellar parenchymal volume loss. The known left orbital blowout fracture is better demonstrated on 10/01/[address] Left periorbital contusion. Moderate mucosal membrane thickening scattered throughout the visualized paranasal sinuses with air-fluid level/ blood products within the left maxillary sinus. The bilateral mastoid air cells are well aerated. Procedure Note Giovanni Tijerina M.D. - 10/02/2023 EXAM: CT HEAD WITHOUT IV CONTRAST COMPARISON: CT head without contrast 10/02/2023 FINDINGS: Since earlier today at 0020, no significant change in the thin acutesubdural hematoma overlying the anterior left frontal lobe measuring up to4 mm in maximal thickness or the small right parafalcine subdural hematomameasuring up to 4 mm. No significant change in the small volume left parafalcine acute subarachnoidhemorrhage. No new area of acute intracranial hemorrhage or extra-axialfluid collection. No mass effect. No evidence of acute large vessel territory ischemic infarct. Mildleukoaraiosis. Moderate generalized cerebral and cerebellar parenchymalvolume loss. The known left orbital blowout fracture is better demonstrated on10/01/[address] Left periorbital contusion. Moderate mucosal membrane thickening scattered throughout the visualizedparanasal sinuses with air-fluid level/ blood products within the leftmaxillary sinus. The bilateral mastoid air cells are well aerated. IMPRESSION: 1. Since earlier today at 0020, no significant interval change in thesmall volume acute subdural and subarachnoid hemorrhage as described. Nonew area of acute intracranial hemorrhage. No mass effect. 2. The known left orbital blowout fractures better demonstrated on10/01/[address] for Ingrid Brown APRN, C.N.P., D.N.P. IM CT PROCEDURES * CBC with Differential, Blood (10/02/2023 5:50 AM CDT) Hemoglobin 12.8 11.6 - 15.0 g/dL 10/02/2023 [...] APRN, C.N.P., D.N.P. LAB BLO OD ADD-ON [facility] [address] [place] [address], [facility] NPRG [facility] [address] [place] [address] * (ABNORMAL) Basic Metabolic Panel (10/02/2023 5:50 AM CDT) [facility] Potassium, P 4.1 3.6 - 5.2 mmol/L 10/02/2023 6:33 AM CDT NPRG Sodium, P 148(H) 135 - 145 mmol/L 10/02/2023 6:33 AM CDT NPRG Chloride, P 115(H) 98 - 107 mmol/L 10/02/2023 6:33 AM CDT NPRG Bicarbonate, P 25 22 - 29 mmol/L 10/02/2023 6:33 AM CDT NPRG Anion Gap, P 8 7 - 15 10/02/2023 6:33 AM CDT NPRG BUN (Blood Urea Nitrogen), P 18 6 - 21 mg/dL 10/02/2023 6:33 AM CDT NPRG Creatinine 0.50(L) 0.59 - 1.04 mg/dL 10/02/2023 6:33 AM CDT NPRG Estimated GFR (eGFR) >90 >=60 mL/min/BSA 10/02/2023 6:33 AM CDT NPRG Comment: Estimated GFR calculated using the 2020 CKD_EPI creatinine equation. Calcium, Total, P 9.4 8.8 - 10.2 mg/dL 10/02/2023 6:33 AM CDT NPRG Glucose, P 96 70 - 140 mg/dL 10/02/2023 6:33 AM CDT NPRG Blood (Blood, Venous) 10/02/2023 5:50 AM CDT 10/02/2023 6:09 AM CDT Ingrid Brown APRN, C.N.P., D.N.P. LAB BLO OD ADD-ON [facility] [address] [place] [address], [facility] NPRG [facility] [address] [place] [address] * CT Head without IV Contrast (10/02/2023 12:30 AM CDT) Anatomical Region Laterality Modality Head, Neuroradiology RST LOS , Neuroradiology ARZ LOS, Neuroradiology FLA LOS N/A Computed Tomography 10/02/2023 12:2 6 AM CDT Impressions 10/02/2023 12:48 AM CDT Unchanged small volume acute parafalcine subarachnoid and thin subdural hemorrhage. No new or increasing acute intracranial hemorrhage. Narrative 10/02/2023 12:48 AM CDT EXAM: CT HEAD WITHOUT IV CONTRAST COMPARISON: 10/01/[address] FINDINGS: BRAIN PARENCHYMA: No acute parenchymal hemorrhage, mass effect, or evolving large territorial ischemia. Patchy areas of hypoattenuation within the supratentorial white matter, nonspecific and most commonly ascribed to mild sequelae of chronic small vessel ischemic disease. EXTRA-AXIAL SPACES & VENTRICLES: Mild ventricular prominence due to global brain parenchymal volume loss. Unchanged small volume parafalcine acute subarachnoid hemorrhage and thin subdural hematoma. No intraventricular hemorrhage. ORBITS: Globes are intact. Left orbital floor blowout fracture better seen on prior maxillofacial CT. PARANASAL SINUSES: Small air-fluid level with a left maxillary sinus, unchanged. Partial opacification of the ethmoid air cells, increased. MASTOID AIR CELLS: Hypopneumatized on the right and well-aerated on the left. CALVARIUM & SOFT TISSUES: No acute calvarial fractures. No significant scalp hematoma. OTHER: None. Procedure Note Aurelio Mejias M.D. - 10/02/2023 EXAM: CT HEAD WITHOUT IV CONTRAST COMPARISON: 10/01/[address] FINDINGS: BRAIN PARENCHYMA: No acute parenchymal hemorrhage, mass effect, orevolving large territorial ischemia. Patchy areas of hypoattenuationwithin the supratentorial white matter, nonspecific and most commonlyascribed to mild sequelae of chronic small vessel ischemic disease. EXTRA-AXIAL SPACES & VENTRICLES: Mild ventricular prominence due to globalbrain parenchymal volume loss. Unchanged small volume parafalcine acutesubarachnoid hemorrhage and thin subdural hematoma. No intraventricularhemorrhage. ORBITS: Globes are intact. Left orbital floor blowout fracture better seenon prior maxillofacial CT. PARANASAL SINUSES: Small air-fluid level with a left maxillary sinus,unchanged. Partial opacification of the ethmoid air cells, increased. MASTOID AIR CELLS: Hypopneumatized on the right and well-aerated on theleft. CALVARIUM & SOFT TISSUES: No acute calvarial fractures. No significantscalp hematoma. OTHER: None. IMPRESSION: Unchanged small volume acute parafalcine subarachnoid and thin subduralhemorrhage. No new or increasing acute intracranial hemorrhage. Jake LAYTON CT PROCEDURES * DX Shoulder Left 2+ Views (10/01/2023 [...] Arias M.D. LAB BLOOD NON ADD-O N [facility] [address] [place] [address], [facility] NPRG [facility] [address] [place] [address] * APTT (Activated Partial Thromboplastin Time) (10/01/2023 10:05 PM CDT) Activated Partial Thrombopl Time, P 28 25 - 37 sec 10/01/2023 10:20 PM CDT NPRG Blood (Blood, Venous) 10/01/2023 10:05 PM CDT 10/01/2023 10:08 PM CDT Jake Arias M.D. LAB BLOOD ADD-ON [facility] [address] [place] [address], [facility] NPRG [place] [address] [place] [address] * Prothrombin Time (PT) (10/01/2023 10:05 PM [...] CDT Jake Arias M.D. LAB BLOOD ADD-ON [facility] [address] [place] [address], [facility] NPRG [place] [address] [place] [address] * CBC with Differential, Blood (10/01/2023 10:05 PM CDT) Pathologist [facility] Hemoglobin 13.2 11.6 - 15.0 g/dL 10/01/2023 10:14 PM CDT NPRG Hematocrit 40.0 35.5 - 44.9 % 10/01/2023 10:14 PM CDT NPRG Erythrocytes 4.57 3.92 - 5.13 x10(12)/L 10/01/2023 10:14 PM CDT NPRG MCV 87.5 78.2 - 97.9 fL 10/01/2023 10:14 PM CDT NPRG RBC Distrib Width 13.6 12.2 - 16.1 % 10/01/2023 10:14 PM CDT NPRG Platelet Count 296 157 - 371 x10(9)/L 10/01/2023 10:14 PM CDT NPRG Leukocytes 6.6 3.4 - 9.6 x10(9)/L 10/01/2023 10:14 PM CDT NPRG Neutrophils 2.90 1.56 - 6.45 x10(9)/L 10/01/2023 10:14 PM CDT NPRG Lymphocytes 2.89 0.95 - 3.07 x10(9)/L 10/01/2023 10:14 PM CDT NPRG Monocytes 0.43 0.26 - 0.81 x10(9)/L 10/01/2023 10:14 PM CDT NPRG Eosinophils 0.30 0.03 - 0.48 x10(9)/L 10/01/2023 10:14 PM CDT NPRG Basophils 0.04 0.01 - 0.08 x10(9)/L 10/01/2023 10:14 PM CDT NPRG Blood (Blood, Venous) 10/01/2023 10:05 PM CDT 10/01/2023 10:08 PM CDT Jake Arias M.D. LAB BLOOD ADD-ON [facility] [address] [place] [address], [facility] NPRG [facility] [address] [place] [address] * (ABNORMAL) Comprehensive Metabolic Panel (10/01/2023 10:05 [...] CDT Jake Arias M.D. LAB BLOOD ADD-ON [facility] [address] [place] [address], [facility] NPRG [facility] [address] [place] [address] * CT Cervical Spine without IV Contrast [...] or malalignment of the cervical spine. Jake LAYTON CT PROCEDURES * CT Maxillofacial without IV [...] on 10/01/2023 at 2138. Jake Arias M.D. [facility] CT PROCEDURES * CT Head without IV Contrast (10/01/2023 9:34 PM CDT) Anatomical Region Laterality Modality Head, Neuroradiology RST LOS , Neuroradiology ARZ LOS, Neuroradiology FLA LOS N/A Computed Tomography 10/01/2023 9:32 PM CDT Impressions 10/01/2023 9:45 PM CDT 1. Acute [...] 2138. Jake Arias M.D. IMG CT PROCEDURES documented in this encounter Visit Diagnoses Diagnosis Subarachnoid Hemorrhage With Loss Of Conscious Initial (HCC)- Primary Subarachnoid Hemorrhage With Loss Of Conscious Initial (HCC) Traumatic Subdural Hemorrhage With Loss Of Consciousness Of 30 Minutes Or Less Initial (HCC) Injury Head Initial History Of Falling Laceration Face Initial Alcohol Abuse With Intoxication Unspecified (HCC) Contusion Shoulder Initial Left Fracture Orbital Floor Open Initial Left (HCC) Fracture Orbital Floor Closed Initial Left (HCC) Traumatic Subdural Hemorrhage With Loss Of Consciousness Of 30 Minutes Or Less Initial (HCC) History Of Falling Alcohol Abuse With Intoxication Unspecified (HCC) Contusion Shoulder Initial Left Laceration Face Initial Fracture Orbital Floor Closed Initial Left (HCC) Fracture Orbital Floor Open Initial Left (HCC) Subarachnoid Hemorrhage With Loss Of Conscious Initial (HCC) Traumatic Subdural Hemorrhage With Loss Of Consciousness Of 30 Minutes Or Less Initial (HCC) Injury Head Initial History Of Falling Laceration Face Initial Alcohol Abuse With Intoxication Unspecified (HCC) Contusion Shoulder Initial Left Fracture Orbital Floor Open Initial Left (HCC) Fracture Orbital Floor Closed Initial Left (HCC) documented in this encounter Admitting Diagnoses Diagnosis Subarachnoid Hemorrhage With Loss Of Conscious Initial (HCC) Traumatic Subdural Hemorrhage With Loss Of Consciousness Of 30 Minutes Or Less Initial (HCC) History Of Falling Alcohol Abuse With Intoxication Unspecified (HCC) Contusion Shoulder Initial Left Laceration Face Initial documented in this encounter Administered Medications Inactive Administered Medications - up to 3 most recent administrations Medication Order MAR Action Action Date Dose Rate Site amoxicillin-pot clavulanate 875-125 mg per tablet 1 tablet (AUGMENTIN) 1 tablet, oral, Every 12 hours scheduled, First dose (after last modification) on Sun10/01/23 at 2304, For 5 days, Drug Monitoring Program: Pharmacist to adjust medication dosing based on indication and drug clearance factors., Indications: Prophylaxis, surgical Given 10/02/2023 8:44 AM CDT 1 tablet Given 10/01/2023 11:15 PM CDT 1 tablet hydrALAZINE injection 10 mg (APRESOLINE) 10 mg, intravenous, Every 6 hours PRN, high blood pressure, SBP >160, Starting on Sun10/02/23 at 0224 levETIRAcetam in NaCl (iso osm) IVPB 1,500 mg (Keppra) 1,500 mg, intravenous, at 300 mL/hr, Administer over 20 Minutes, Once, On Sun10/01/23 at 2228, For 1 dose New Bag 10/01/2023 10:29 PM CDT 1,500 mg 300 mL/hr levETIRAcetam tablet 1,000 mg (KEPPRA) 1,000 mg, oral, 2 times daily, First dose on Sun10/02/23 at 0900, For 7 days Given 10/02/2023 8:44 AM CDT 1,000 mg lidocaine-EPINEPHrine 1 %-1:100,000 injection 10 mL (XYLOCAINE W/EPI) 10 mL, infiltration, Once, On Sun10/01/23 at 2203, For 1 dose Given 10/01/2023 10:31 PM CDT 10 mL LORazepam injection 0.5 mg (ATIVAN) 0.5 mg, intravenous, Every 1 hour PRN, withdrawal, Starting on Sun10/02/23 at 0217, CIWA Score 10-12 Shortage on injection, use oral when possible For intravenous use, dilute with equal volume of 0.9% NS LORazepam injection 1 mg (ATIVAN) 1 mg, intravenous, Every 1 hour PRN, withdrawal, Starting on Sun10/02/23 at 0217, CIWA Score 13-14 Shortage on injection, use oral when possible For intravenous use, dilute with equal volume of 0.9% NS LORazepam injection 1.5 mg (ATIVAN) 1.5 mg, intravenous, Every 1 hour PRN, withdrawal, Starting on Sun10/02/23 at 0217, CIWA Score 15-17 Shortage on injection, use oral when possible For intravenous use, dilute with equal volume of 0.9% NS LORazepam injection 2 mg (ATIVAN) 2 mg, intravenous, Every 1 hour PRN, withdrawal, Starting on Sun10/02/23 at 0217, CIWA Score 18 or greater Shortage on injection, use oral when possible For intravenous use, dilute with equal volume of 0.9% NS LORazepam tablet 1 mg (ATIVAN) 1 mg, oral, Every 1 hour PRN, withdrawal, Starting on Sun10/02/23 at 021, CIWA Score 10-12 LORazepam tablet 2 mg (ATIVAN) 2 mg, oral, Every 1 hour PRN, withdrawal, Starting on Sun10/02/23 at 021, CIWA Score 13-14 LORazepam tablet 3 mg (ATIVAN) 3 mg, oral, Every 1 hour PRN, withdrawal, Starting on Sun10/02/23 at 021, CIWA Score 15-17 LORazepam tablet 4 mg (ATIVAN) 4 mg, oral, Every 1 hour PRN, withdrawal, Starting on Sun10/02/23 at 021, CIWA Score 18 or greater multivitamin/mineral- tablet 1 tablet 1 tablet, oral, Once, On Sun10/01/23 at 2303, For 1 dose Given 10/01/2023 11:15 PM CDT 1 tablet multivitamin/mineral- tablet 1 tablet 1 tablet, oral, Daily, First dose on Sun10/02/23 at 0900 Given 10/02/2023 8:44 AM CDT 1 tablet NaCl 0.9 % bolus 1,000 mL 1,000 mL, intravenous, at 2,000 mL/hr, Administer over 30 Minutes, Once, On Sun10/01/23 at 2159, For 1 dose New Bag 10/01/2023 10:10 PM CDT 1,000 mL 2000 mL/hr oxyCODONE IR tablet 10 mg (ROXICODONE) 10 mg, oral, Every 4 hours PRN, severe pain or score 7-10 of 10, Starting on Sun10/02/23 at 0215 oxyCODONE IR tablet 5 mg (ROXICODONE) 5 mg, oral, Every 4 hours PRN, moderate pain or score 4-6 of 10, Starting on Sun10/02/23 at 0215 Given 10/02/2023 4:23 PM CDT 5 mg Given 10/02/2023 8:43 AM CDT 5 mg sodium chloride 0.9 % injection 10 mL 10 mL, intravenous, As needed, line care, Starting on Sun10/01/23 at 2157, Peripheral Intravenous Catheter and Rapid Infusion Catheter, prior to blood sampling, post blood transfusion or post blood sampling sodium chloride 0.9 % injection 3 mL 3 mL, intravenous, As needed, line care, Starting on Sun10/01/23 at 2157, Prior to and following infusion and between multiple consecutive infusions: sodium chloride 0.9 % injection sodium chloride 0.9 % injection 3 mL 3 mL, intravenous, Every 12 hours scheduled, First dose on Sun10/02/23 at 0900, Peripheral Intravenous Catheter and Rapid Infusion Catheter, when no infusion to maintain patency Given 10/02/2023 8:44 AM CDT 3 mL thiamine tablet 100 mg (VITAMIN B1) 100 mg, oral, Once, On Sun10/01/23 at 2303, For 1 dose Given 10/01/2023 11:16 PM CDT 100 mg documented in this encounter Active and Recently Administered Medications Times are shown in CDT. Scheduled Medication Order 09/30/2023 10/01/2023 10/02/2023 amoxicillin-pot clavulanate 875-125 mg per tablet 1 tablet (AUGMENTIN) 1 tablet, oral, Every 12 hours scheduled, First dose (after last modification) on Sun10/01/23 at 2304, For 5 days, Drug Monitoring Program: Pharmacist to adjust medication dosing based on indication and drug clearance factors., Indications: Prophylaxis, surgical 2315 (Given - Provider: Mariama Sanchez RNicky) 0844 (Given - Provider: Soumya Rose RNicky) labetalol injection 10 mg (NORMODYNE,TRANDATE) 10 mg, intravenous, Once, On Sun10/01/23 at 2201, For 1 dose 2337 (Not Given - Provider: Mariama Sanchez RHans. - Reason: Discontinued) levETIRAcetam in NaCl (iso osm) IVPB 1,500 mg (Keppra) (COMPLETED) 1,500 mg, intravenous, at 300 mL/hr, Administer over 20 Minutes, Once, On Sun10/01/23 at 2228, For 1 dose 2228 (New Bag - Provider: Mariama Sanchez RHaydenNHayden)2259 (Stopped - Provider: Mariama Sanchez R.N.) levETIRAcetam tablet 1,000 mg (KEPPRA) 1,000 mg, oral, 2 times daily, First dose on Sun10/02/23 at 0900, For 7 days 0844 (Given - Provid er: Soumya Rose R.N.) lidocaine-EPINEPHrine 1 %-1:100,000 injection 10 mL (XYLOCAINE W/EPI) (COMPLETED) 10 mL, infiltration, Once, On Sun10/01/23 at 2203, For 1 dose 223 (Given - Provider: Mariama Sanchez R.N.) multivitamin/mineral-prena jero tablet 1 tablet (COMPLETED) 1 tablet, oral, Once, On Sun10/01/23 at 2303, For 1 dose 231 (Given - Provider: Mariama Sanchez R.N.) multivitamin/mineral-prena jero tablet 1 tablet 1 tablet, oral, Daily, First dose on Sun10/02/23 at 0900 0844 (Given - Provid er: Soumya Rose R.N.) NaCl 0.9 % bolus 1,000 mL (COMPLETED) 1,000 mL, intravenous, at 2,000 mL/hr, Administer over 30 Minutes, Once, On Sun10/01/23 at 2159, For 1 dose 2209 (New Bag - Provider: Mariama Sanchez R.N.)225 (Stopped - Provider: Mariama Sanchez R.N.) sodium chloride 0.9 % injection 3 mL 3 mL, intravenous, Every 12 hours scheduled, First dose on Sun10/02/23 at 0900, Peripheral Intravenous Catheter and Rapid Infusion Catheter, when no infusion to maintain patency 0844 (Given - Provid er: Soumya Rose R.N.) thiamine tablet 100 mg (VITAMIN B1) (COMPLETED) 100 mg, oral, Once, On Sun10/01/23 at 2303, For 1 dose 231 (Given - Provider: Mariama Sanchez R.N.) PRN Medication Order 09/30/2023 10/01/2023 10/02/2023 hydrALAZINE injection 10 mg (APRESOLINE) 10 mg, intravenous, Every 6 hours PRN, high blood pressure, SBP >160, Starting on Sun10/02/23 at 0224 LORazepam injection 0.5 mg (ATIVAN)(Linked Group 1) 0.5 mg, intravenous, Every 1 hour PRN, withdrawal, Starting on Sun10/02/23 at 0217, CIWA Score 10-12 Shortage on injection, use oral when possible For intravenous use, dilute with equal volume of 0.9% NS LORazepam injection 1 mg (ATIVAN)(Linked Group 1) 1 mg, intravenous, Every 1 hour PRN, withdrawal, Starting on Sun10/02/23 at 0217, CIWA Score 13-14 Shortage on injection, use oral when possible For intravenous use, dilute with equal volume of 0.9% NS LORazepam injection 1.5 mg (ATIVAN)(Linked Group 1) 1.5 mg, intravenous, Every 1 hour PRN, withdrawal, Starting on Sun10/02/23 at 021, CIWA Score 15-17 Shortage on injection, use oral when possible For intravenous use, dilute with equal volume of 0.9% NS LORazepam injection 2 mg (ATIVAN)(Linked Group 1) 2 mg, intravenous, Every 1 hour PRN, withdrawal, Starting on Sun10/02/23 at 021, CIWA Score 18 or greater Shortage on injection, use oral when possible For intravenous use, dilute with equal volume of 0.9% NS LORazepam tablet 1 mg (ATIVAN)(Linked Group 1) 1 mg, oral, Every 1 hour PRN, withdrawal, Starting on Sun10/02/23 at 021, CIWA Score 10-12 LORazepam tablet 2 mg (ATIVAN)(Linked Group 1) 2 mg, oral, Every 1 hour PRN, withdrawal, Starting on Sun10/02/23 at 0217, CIWA Score 13-14 LORazepam tablet 3 mg (ATIVAN)(Linked Group 1) 3 mg, oral, Every 1 hour PRN, withdrawal, Starting on Sun10/02/23 at 021, CIWA Score 15-17 LORazepam tablet 4 mg (ATIVAN)(Linked Group 1) 4 mg, oral, Every 1 hour PRN, withdrawal, Starting on Sun10/02/23 at 0217, CIWA Score 18 or greater naloxone injection 0.2 mg 0.2 mg, intravenous, As needed, respiratory depression, Starting on Sun10/02/23 at 0216, For RASS Score -4 or less, respiratory rate of less than 8 breaths/min. Notify provider/service and rapid response team (if available at institution). ondansetron (PF) injection 4 mg (ZOFRAN) 4 mg, intravenous, Every 6 hours PRN, nausea, vomiting, Starting on Sun10/02/23 at 0215 oxyCODONE IR tablet 10 mg (ROXICODONE)(Linked Group 2) 10 mg, oral, Every 4 hours PRN, severe pain or score 7-10 of 10, Starting on Sun10/02/23 at 0215 0843 (See Alternativ e - Provider: Soumya Rose R.N.)1623 (See Alternative - Provider: Soumya Rose R.N.) oxyCODONE IR tablet 5 mg (ROXICODONE)(Linked Group 2) 5 mg, oral, Every 4 hours PRN, moderate pain or score 4-6 of 10, Starting on Sun10/02/23 at 0215 0843 (Given - Provid er: Soumya Rose R.N.)1623 (Given - Provider: Soumya Rose R.N.) sodium chloride 0.9 % injection 10 mL 10 mL, intravenous, As needed, line care, Starting on Sun10/01/23 at 2157, Peripheral Intravenous Catheter and Rapid Infusion Catheter, prior to blood sampling, post blood transfusion or post blood sampling sodium chloride 0.9 % injection 3 mL 3 mL, intravenous, As needed, line care, Starting on Sun10/01/23 at 2157, Prior to and following infusion and between multiple consecutive infusions: sodium chloride 0.9 % injection Linked Groups Order Group 1: LORazepam tablet 1 mg (ATIVAN)Jump to med 1 mg, oral, Every 1 hour PRN, withdrawal, Starting on Sun10/02/23 at 0217, CIWA Score 10-12 Or LORazepam injection 0.5 mg (ATIVAN)Jump to med 0.5 mg, intravenous, Every 1 hour PRN, withdrawal, Starting on Sun10/02/23 at 0217, CIWA Score 10-12 Shortage on injection, use oral when possible For intravenous use, dilute with equal volume of 0.9% NS Or LORazepam tablet 2 mg (ATIVAN)Jump to med 2 mg, oral, Every 1 hour PRN, withdrawal, Starting on Sun10/02/23 at 0217, CIWA Score 13-14 Or LORazepam injection 1 mg (ATIVAN)Jump to med 1 mg, intravenous, Every 1 hour PRN, withdrawal, Starting on Sun10/02/23 at 0217, CIWA Score 13-14 Shortage on injection, use oral when possible For intravenous use, dilute with equal volume of 0.9% NS Or LORazepam tablet 3 mg (ATIVAN)Jump to med 3 mg, oral, Every 1 hour PRN, withdrawal, Starting on Sun10/02/23 at 0217, CIWA Score 15-17 Or LORazepam injection 1.5 mg (ATIVAN)Jump to med 1.5 mg, intravenous, Every 1 hour PRN, withdrawal, Starting on Sun10/02/23 at 0217, CIWA Score 15-17 Shortage on injection, use oral when possible For intravenous use, dilute with equal volume of 0.9% NS Or LORazepam tablet 4 mg (ATIVAN)Jump to med 4 mg, oral, Every 1 hour PRN, withdrawal, Starting on Sun10/02/23 at 0217, CIWA Score 18 or greater Or LORazepam injection 2 mg (ATIVAN)Jump to med 2 mg, intravenous, Every 1 hour PRN, withdrawal, Starting on Sun10/02/23 at 0217, CIWA Score 18 or greater Shortage on injection, use oral when possible For intravenous use, dilute with equal volume of 0.9% NS Group 2: oxyCODONE IR tablet 5 mg (ROXICODONE)Jump to med 5 mg, oral, Every 4 hours PRN, moderate pain or score 4-6 of 10, Starting on e 10/02/23 at 0215 Or oxyCODONE IR tablet 10 mg (ROXICODONE)Jump to med 10 mg, oral, Every 4 hours PRN, severe pain or score 7-10 of 10, Starting on Sun10/02/23 at 0215 documented in this encounter Care Teams Senior C Software Engineer Relationship Specialty Start Date End Date Elsewhere, Pcp PCP - General Internal Medicine 10/01/23 documented as of this encounter
--- OUTSIDE RECORDS SUMMARY | 2023-11-05 14:52 | XMS_ITS ---
Author Organization [facility] Address [address] [place] [address] Care Team Providers Care Blueprint Assembler Name Role Phone Elsewhere, Pcp Primary Care Provider Unavailabl e [facility] Program Status:Identified (Enrolling) Start date:10/02/2023 Continued Care and Services Coordination
--- OUTSIDE RECORDS SUMMARY | 2023-11-05 14:52 | XMS_ITS | Encounter Summary ---
Author Organization [facility] Address [address] [place] [address] Care Team Providers Care Digital Solution Architect Name Role Phone Elsewhere, Pcp Primary Care Provider Unavailabl e Encounter Details Date Type Department Care Team (Late st Contact Info) Description 10/02/2023 1:50 AM CDT Ancillary Procedure Department of Nursing Social History Tobacco Use Types Packs/Day Years Used Date Smoking Tobacco: Never Smokeless Tobacco: Never Alcohol Use Standard Drinks/Week Comments Yes 0 (1 standard drink = 0.6 oz pur e alcohol) [facility] Utilities Answer Date Recorded In the past 12 months has e [employer], gas, oil, or water [employer] threatened to shut off services in your [...] your living situation today? I have a [facility] place to live 10/02/2023 Sex and Gender Information Value Date Recorded Sex Assigned at Not on file Gender Identity Not on file Sexual Orientation Not on file documented as of this encounter Plan of Treatment Not on file documented as of this encounter Procedures Procedure Name Priority Date/Time Associated Diagnosis Comments NURSING IMAGE EXAM Routine 10/02/2023 1: 50 AM CDT documented in this encounter Results * Shoulder, left-Nursing Image Exam (10/02/2023 1:50 AM CDT) 10/02/2023 1:49 AM CDT Narrative IIMS - 10/02/2023 1:52 AM CDT This order has been created and auto-finalized to support the import of images acquired without order. The clinical documentation to support these images can be found on the encounter that produced images. Provider Not In System IMG NON RAD IMAGI NG PROCEDURES [facility] NA documented in this encounter Visit Diagnoses Not on filedocumented in this encounter Care Teams Digital Solution Architect Relationship Specialty Start Date End Date Elsewhere, Pcp PCP - General Internal Medicine 10/01/23 documented as of this encounter
--- OUTSIDE RECORDS SUMMARY | 2023-11-05 14:52 | XMS_ITS | Encounter Summary ---
Author Organization [facility] Address [address] [place] [address] Care Team Providers Care Adjustment Supervisor Name Role Phone Elsewhere, Pcp Primary Care Provider Unavailabl e Reason for Visit * Reason Onset Date Comments Tcm - Post-Hospital Visit 10/03/2023 Encounter Details Date Type Department Care Team (Latest Contact Info) Description 10/03/2023 Clinical Communication Department of Transitional Care in [place], [place] [address] [place] [address] Yuko Gustafson R.N. [address] [place] [phone] Tcm - Post-Hospital Visit Social History Tobacco Use Types Packs/Day Years Used Date Smoking Tobacco: Never Smokeless Tobacco: Never Alcohol Use Standard Drinks/Week Comments Yes 0 (1 standard drink = 0.6 oz pur e alcohol) [facility] Utilities Answer Date Recorded In the past 12 months has [facility] [employer], gas, oil, or water [employer] threatened to shut off services in your [...] your living situation today? I have a [facility] place to live 10/02/2023 Sex and Gender Information Value Date Recorded Sex Assigned at Not on file Gender Identity Not on file Sexual Orientation Not on file documented as of this encounter Miscellaneous Notes * Telephone Encounter - Yuko Gustafson R.N. - 10/03/2023 9:35 AM CDT post hospital TCM attempt #1. documented in this encounter Plan of Treatment Not on file documented as of this encounter Visit Diagnoses Not on filedocumented in this encounter Care Teams Adjustment Supervisor Relationship Specialty Start Date End Date Elsewhere, Pcp PCP - General Internal Medicine 10/01/23 documented as of this encounter
--- OUTSIDE RECORDS SUMMARY | 2023-11-05 14:52 | XMS_ITS | Encounter Summary ---
Author Organization [facility] Address [address] [place] [address] Care Team Providers Care Continuous Process Machine Operator Name Role Phone Elsewhere, Pcp Primary Care Provider Unavailabl e Encounter Details Date Type Department Care Team (Late st Contact Info) Description 10/02/2023 2:00 AM CDT Ancillary Procedure Department of Nursing Social History Tobacco Use Types Packs/Day Years Used Date Smoking Tobacco: Never Smokeless Tobacco: Never Alcohol Use Standard Drinks/Week Comments Yes 0 (1 standard drink = 0.6 oz pur e alcohol) [facility] Utilities Answer Date Recorded In the past 12 months has e [employer], gas, oil, or water [facility] threatened to shut off services in your [...] your living situation today? I have a [facility] place to live 10/02/2023 Sex and Gender Information Value Date Recorded Sex Assigned at Not on file Gender Identity Not on file Sexual Orientation Not on file documented as of this encounter Plan of Treatment Not on file documented as of this encounter Procedures Procedure Name Priority Date/Time Associated Diagnosis Comments NURSING IMAGE EXAM Routine 10/02/2023 1: 52 AM CDT documented in this encounter Results * Eye Left-Nursing Image Exam (10/02/2023 1:52 AM CDT) 10/02/2023 1:50 AM CDT Narrative [facility]IM[facility] - [...] on filedocumented in this encounter Care Teams Continuous Process Machine Operator Relationship Specialty Start Date End Date Elsewhere, Pcp PCP - General Internal Medicine 10/01/23 documented as of this encounter
--- OUTSIDE RECORDS SUMMARY | 2023-11-05 14:52 | XMS_ITS | Encounter Summary ---
Author Organization [facility] Address [address] [place] [address] Care Team Providers Care Pharmacovigilance Scientist Name Role Phone Elsewhere, Pcp Primary Care Provider Unavailabl e Reason for Referral * MRI/CAT/PET Scan (Routine) - Closed Specialty [...] Head without IV Contrast Manuel Lee M.D. [address] [place] [address] [facility] Region Referral ID Status Reason Start Date Expiration Date Visits Re quested Visits Authorized [id number] Closed 10/04/2023 11/03/2023 1 1 Reason for Visit * MRI/CAT/PET Scan (Routine) - Closed Specialty [...] Head without IV Contrast Manuel Lee M.D. [address] [place] [address] [facility] Region Referral ID Status Reason Start Date Expiration Date Visits Re quested Visits Authorized [id number] Closed 10/04/2023 11/03/2023 1 1 Encounter Details Date Type Department Care Team (Latest Contact Info) Description 10/04/2023 2:00 PM CDT - 10/04/2023 11:59 PM CDT Hospital Encounter Department of Radiology in [place], [place] [address] [place] [address] Manuel Lee M.D. [address] [place] [phone] Subarachnoid Hemorrhage With Loss Of Conscious Initial [...] drink = 0.6 oz pur e alcohol) [facility] Utilities Answer Date Recorded In the past 12 months has [facility] [employer], [employer], oil, or water [employer] threatened to shut off services in your [...] your living situation today? I have a [facility] place to live 10/02/2023 Sex and Gender Information Value Date Recorded Sex Assigned at Not on file Gender Identity Not on file Sexual Orientation Not on file documented as of this encounter Medications at Time of Discharge Medication Sig Dispensed Refills Start Date End Date levETIRAcetam (KEPPRA) 1,000 mg tablet Take 1 tablet (1,000 mg total) by mouth 2 (two) times a day for 13 doses. To prevent seizure from known intracranial bleed. 13 tablet 10/02/2023 lutein-zeaxanthin 25-5 mg capsule Take by mouth. 05/23/2016 dnqvlxrukbru-Dd-pjqf-mi nerals 27-0.4 mg tablet Take 1 tablet [...] 10/02/2023 10/06/2023 documented as of this encounter Plan of [...] Initial Left (HCC) documented in this encounter Results * CT [...] intracranial pathology. Manuel LAYTON CT PROCEDURE S documented in this encounter Visit Diagnoses Diagnosis [...] (HCC) documented in this encounter Care Teams Pharmacovigilance Scientist Relationship Specialty Start Date End Date Elsewhere, Pcp PCP - General Internal Medicine 10/01/23 documented as of this encounter
--- OUTSIDE RECORDS SUMMARY | 2023-11-05 14:52 | XMS_ITS | Encounter Summary ---
Author Organization [facility] Address [address] [place] [address] Care Team Providers Care Broadband Technician Name Role Phone Elsewhere, Pcp Primary Care Provider Unavailabl e Encounter Details Date Type Department Care Team (Late st Contact Info) Description 10/02/2023 1:55 AM CDT Ancillary Procedure Department of Nursing Social History Tobacco Use Types Packs/Day Years Used Date Smoking Tobacco: Never Smokeless Tobacco: Never Alcohol Use Standard Drinks/Week Comments Yes 0 (1 standard drink = 0.6 oz pur e alcohol) [facility] Utilities Answer Date Recorded In the past 12 months has e [employer], gas, oil, or water [employer] threatened to shut off services in your [...] your living situation today? [facility] 10/02/2023 Sex and Gender [...] CDT documented in this encounter Results * Arm, Left-Nursing Image Exam (10/02/2023 1:52 AM CDT) 10/02/2023 1:49 AM CDT Narrative [...] on filedocumented in this encounter Care Teams Broadband Technician Relationship Specialty Start Date End Date Elsewhere, Pcp PCP - General Internal Medicine 10/01/23 documented as of this encounter
--- OUTSIDE RECORDS SUMMARY | 2023-11-05 14:52 | XMS_ITS | Clinical Summary ---
Author Organization [facility] Address [place], [place] [address] Care Team Providers Care Appraisal Specialist Name Role Phone Siobhan Puente MD Primary Care Provider Valerie valle Allergies No known active allergies Medications Medication Sig Dispensed Refills Start Date End Date Status lutein-zeaxanthin 25-5 mg cap Take by mouth. 0 05/23/2016 Active omega-3 fatty acids-vitamin E (FISH OIL) 1,000 mg cap Take by mouth. 0 05/23/2016 Act raymond multivitamins-calcium- iron-minerals 27-0.4 mg tab tablet Take 1 tablet by mouth once daily. 0 04/20/2017 Active Active Problems Problem Noted Date Diagnosed Date Impaired fasting glucose 06/11/2012 Diverticulosis of colon (without mention of hemo rrhage) 05/02/2011 Overview: Colonoscopy 04/2011 diverticulosis repeat in 10 years Mole (skin) 01/03/2010 Overview: Moderate atypia in lesion on the low back Lip lesion 01/03/2010 Resolved Problems Problem Noted Date Diagnosed Date Resolved Date Contraception 11/30/2008 06/11/2012 Medial epicondylitis of elbow 11/30/2008 06/11/2012 Lateral epicondylitis of elbow 11/30/2008 06/11/2012 Immunizations Name Administration Dates Next Due Influenza, IIV4 04/20/2017,05/23/2016 Td (Age >=7 Years) 01/21/2003 Tdap 04/10/2011 Family History Medical History Relation Name Comments Cancer Father larynx, was a s moker Good Health Mother Hypertension Mother Cancer-breast No Family History Cancer-colon No Family History Relation Name Status Comments Brother 1 murder Brother 2 froze to Brother 3 alchoholic Father larynx cancer Mother Alive Social History Tobacco Use Types Packs/Day Years Used Date Smoking Tobacco: Never Smokeless Tobacco: Never Tobacco Cessation:Counseling Given: Yes Alcohol Use Standard Drinks/Week Comments Yes 0 (1 standard drink = 0.6 oz pur e alcohol) weekly Sex and Gender Information Value Date Recorded Sex Assigned at Not on file Gender Identity Not on file Sexual Orientation Not on file Obstetrics History Para Term AB IAB SAB Ectopic Multiple Livin g Live Births 0 0 0 0 0 0 0 0 0 0 Last Filed Vital Signs Vital Sign Reading Time Taken Comments Blood Pressure 147/82 04/20/2017 3:44 PM BREAD RACKER Pulse 60 04/20/2017 3:39 PM BREAD RACKER Temperature 36.8 ??C (98.2 ??F) 05/23/2016 9:17 AM CS T Respiratory Rate - - Oxygen Saturation 99% 04/20/2017 3:39 PM BREAD RACKER Inhaled Oxygen Concentration - - Weight 70.8 kg (156 lb) 04/20/2017 3:39 PM BREAD RACKER Height 168.5 cm (5' 6.34) 04/20/2017 3:39 PM CS T Body Mass Index 24.92 04/20/2017 3:39 PM BREAD RACKER Plan of Treatment Health Maintenance Due Date Last Done Comments HIV for age 15-65 1974 Hepatitis C screening for age 18-79 1977 Zoster (shingles) series for age 50+ (1 of 2) 2009 BMI (ht and wt on same day) for age 18+ 04/20/2018 04/20/2017, 05/23/2016 Depression screening for age 12+ 04/20/2018 04/20/2017, 05/23/2016 Mammogram for age 45-75 04/20/2018 04/20/20 17, 05/23/2016, 06/11/2012, Additional history exists Tetanus booster 04/10/2021 04/10/2011, 01/21/2003 Colonoscopy through age 75 05/02/2021 05/02/2011, Lipids for age 45-75 05/23/2021 05/23/2016, 04/26/2011, 09/28/2006 COVID-19 vaccine series ( season) 2023 Influenza for age 50-64 02/03/2024 04/20/20 17, 05/23/2016, 04/10/2011 (Declined) Pap test for age 21-65 12/27/2025 , 12/27/2022, 05/23/2018, Additional history exists Tdap Completed 04/10/2011 Pneumococcal series for age 6-64 Aged Out No longer eligible based on patient's age to complete this topic Goals Goal Patient Goal Type Associated Problems Recent Progress Patient-Stated? Author BLOOD PRESSURE - MAINTAINS BP less than 140/90 Blood Pressure No Maeve Keating MD Procedures Procedure Name Priority Date/Time Associated Diagnosis Comments HPV THIN PREP Routine 12/27/2022 12:00 PM CDT XR MAMMO BILAT SCREENING Routine 04/20/2017 3:18 PM BREAD RACKER Visit for screening mammogram LIPID PANEL W REFLEX MEASURED LDL Routine 05/23/2016 9:59 AM BREAD RACKER Lipid screening from Last 3 Months or Most Recently Relevant to Health Maintenance Results * HPV HIGH RISK (12/27/2022 12:00 PM CDT) TYPE 16 Negative Negative 12/29/2022 3:59 PM CDT [facility] TYPE 18 Negative Negative 12/29/2022 3:59 PM CDT [facility] OTHER HIGH RISK TYPES Negative Negative 12/29/2022 3:59 PM CDT [facility] Other (Cervical) 12/27/2022 12:00 PM CDT 12/28/2022 2:43 PM CDT Narrative [facility] - 12/29/2022 3:59 PM CDT HPV types 16, 18, 31, 33, 35, 39, 45, 51, 52, 56, 58, 59, 66 and 68 DNA were undetectable or below the pre-set threshold. Methodology: 'Rock' [employer] Paper[employer] 4800 HPV Test Bonita Roy NP MICROBIOLOGY [facility] [address] [place] [address], [place] * XR MAMMO BILAT SCREENING (04/20/2017 3:18 PM BREAD RACKER) Anatomical Region Laterality Modality BREASTS, Breast Left, Breast Right Bilateral Mammography Impressions 04/23/2017 12:22 PM BREAD RACKER ??There is no radiographic evidence for malignancy. ??Recommend annual mammograms. A lay language report of this examination will be provided to the patient. MAMMOGRAM ASSESSMENT: ??ACR 2 Benign Narrative 04/23/2017 12:22 PM BREAD RACKER XR MAMMO BILAT SCREENING [[id number]] CLINICAL HISTORY: ??This is an asymptomatic 57 y.o. patient. INDICATION FOR EXAM: Mammogram Screening. TECHNIQUE: CC & MLO views were obtained. ??This digital study was evaluated with the assistance of Computer-Aided Detection. COMPARISON FILMS: Yes 05/23/16 [facility] 06/11/12 [facility] FINDINGS: ??Mammographically, the breast tissue has scattered fibroglandular densities. ??No suspicious masses or microcalcifications. ?? Benign appearing calcifications within both breasts and Intramammary lymph node within left breast. Maeve Keating MD MAMMO * (ABNORMAL) LIPID PANEL W REFLEX MEASURED LDL ([id number]) (05/23/2016 9:59 AM BREAD RACKER) CHOLESTEROL,TOTAL 251(H) 100 - 199 mg/dL 05/23/2016 10:40 AM [facility] TRIGLYCERIDES 81 <150 mg/dL 05/23/2016 10:40 AM [facility] HDL CHOLESTEROL 75 >40 mg/dL 6 10:40 AM [facility] NON-HDL CHOLESTEROL 176(H) <145 mg/dl 05/23/2016 10:40 AM [facility] CHOL/HDL RATIO 3.35 <4.50 05/23/2016 10:40 AM [facility] LDL CHOLESTEROL 160(H) <=130 mg/dL 05/23/2016 10:40 AM BREAD RACKER [facility] PATIENT STATUS FASTING 05/23/2016 10:40 AM BREAD RACKER [facility] Blood BLOOD SPECIMEN / Unknown Venipuncture / Unknown 05/23/2016 9:59 AM BREAD RACKER 05/23/2016 9:59 AM BREAD RACKER Nan Loomis MD CHEMISTRY [facility] [address] [place] [address], from Last 3 Months or Most Recently Relevant to Health Maintenance Care Teams Appraisal Specialist Relationship Specialty Start Date End Date Siobhan Puente MD PCP - General Family Practice 06/05/18
--- NOTE | 2023-11-05 15:00 | CRLHL7_ITS ---
For Patients: As a result of the Century Cures Act, medical imaging exams and procedure reports are released immediately into your electronic medical record. You may view this report before your referring provider. If you have questions, please contact your health care provider. INDICATION: Intracranial hemorrhage. TECHNIQUE: Noncontrast CT images of the brain. COMPARISON: CT brain 10/04/2023. FINDINGS: Interval resolution of mild subarachnoid hemorrhage within parasagittal left frontal sulci. No acute intracranial hemorrhage. Mild diffuse cerebral volume loss. No mass effect or midline shift. The felix-white differentiation is maintained. No pathologic extra-axial fluid collection. The globes are symmetric. The calvarium is intact. Mild paranasal sinus mucosal thickening. The mastoid air cells are clear. IMPRESSION: 1. Interval resolution of mild subarachnoid hemorrhage within parasagittal left frontal sulci. 2. No acute intracranial hemorrhage. Please note that all CT scans at this facility use dose modulation, iterative reconstruction, and/or weight-based dosing when appropriate to reduce radiation dose to as low as reasonably achievable. Dictated by Angel Sarkar MD @ 11/05/2023 10:30:29 PM (Electronically Signed)
== END 2023-11-05 14:48 | disposition home or self-care (01) ==
PROVIDERS: PCP Internal Medicine; Visit Provider Physician Assistant Surgical
DX: S06.6X9A Traumatic subarachnoid hemorrhage with loss of consciousness of unspecified duration, initial encounter (principal)
CPT/HCPCS: 70450

== ENCOUNTER 2024-01-28 07:59 | Outpatient (CLI) | payer OTHER, SELFPAY ==
--- OUTSIDE RECORDS SUMMARY | 2024-02-01 00:20 | XMS_ITS | Encounter Summary ---
Author Organization [facility] Address [address] [place] [address] Care Team Providers Care Hazard Mitigation Officer Name Role Phone Elsewhere, Pcp Primary Care Provider Unavailabl e Reason for Visit * Reason Onset Date Comments Results 11/08/2023 CT Head Encounter Details Date Type Department Care Team (Latest Contact Info) Description 11/08/2023 Clinical Communication Department of Neurological Surgery in [address] [phone] Kristin Grover P.Domi., M.S. Results (CT Head) Social History Tobacco Use Types Packs/Day Years Used Date Smoking Tobacco: Never Smokeless Tobacco: Never Alcohol Use Standard Drinks/Week Comments Yes 0 (1 standard drink = 0.6 oz pur e alcohol) [facility] Utilities Answer Date Recorded In the past 12 months has [facility] [employer], gas, oil, or water [employer] threatened to shut off services in your [...] your living situation today? I have a [facility] place to live 10/02/2023 Sex and Gender Information Value Date Recorded Sex Assigned at Not on file Gender Identity Not on file Sexual Orientation Not on file documented as of this encounter Miscellaneous Notes * Telephone Encounter - Kristin Grover P.A.-C., M.S. - 11/09/2023 10:52 AM CDT Contacted patient by phone to review her head CT results that were received from [place]. Demonstrates interval resolution of previously noted hemorrhage. No new or recurrent hemorrhage or overt areas of stroke. She denies any headaches or recent stroke or seizure like symptoms. Reports that sheis otherwise doing very well and has not had any falls or trauma in the interim. She was not previously on blood thinners. She may follow up with neurosurgery as needed at this point in time. Alarm signs and symptoms concerning for neurologic compromise warranting emergent medical evaluation were reviewed in detail with the patient. Patient is encouraged to contact the Neurosurgery Department with any questions or concerns should they arise. Patients questions and concerns were addressed to their satisfaction and the patient voices comprehension of the current plan which was discussedin layman's terms at all points in conversation. Kristin Grover, PAC * Telephone Encounter - Lucia Page RNicky - 11/08/2023 1:16 PM CDT Patient is calling wanting to get the results of her head CT scan. Images are downloaded and reportunder Media. documented in this encounter Plan of Treatment Not on file documented as of this encounter Visit Diagnoses Not on filedocumented in this encounter Care Teams Hazard Mitigation Officer Relationship Specialty Start Date End Date Elsewhere, Pcp PCP - General Internal Medicine 10/01/23 documented as of this encounter
--- OUTSIDE RECORDS SUMMARY | 2024-02-01 00:20 | XMS_ITS ---
Author Organization [facility] Address [address] [place] [address] Care Team Providers Care Glass Mechanic Name Role Phone Elsewhere, Pcp [facility] Program Status:Identified (Enrolling) Start date:10/02/2023 Continued Care and Services Coordination
--- OUTSIDE RECORDS SUMMARY | 2024-02-01 00:20 | XMS_ITS | Clinical Summary ---
Author Organization [employer] [facility] Address [place], [place] [address] Care Team Providers Care Television Picture Tube Rebuilder Name Role Phone Siobhan Puente MD Primary Care Provider Unavai lable Allergies No known active allergies Medications Medication [...] Comments Blood Pressure 147/82 04/20/2017 3:44 PM KAIAWHINA Pulse 60 04/20/2017 3:39 PM KAIAWHINA Temperature 36.8 ??C (98.2 ??F) 05/23/2016 9:17 AM CS T Respiratory Rate - - Oxygen Saturation 99% 04/20/2017 3:39 PM KAIAWHINA Inhaled Oxygen Concentration - - Weight 70.8 kg (156 lb) 04/20/2017 3:39 PM KAIAWHINA Height 168.5 cm (5' 6.34) 04/20/2017 3:39 PM CS T Body Mass Index 24.92 04/20/2017 3:39 PM KAIAWHINA Plan of Treatment Health Maintenance Due Date Last Done Comments HIV for age 15-65 1974 Hepatitis C screening for ag e 18-79 1977 Zoster (shingles) series for age 50+ (1 of 2) 2009 BMI (ht and wt on same day) for age 18+ 04/20/2018 04/20/2017, 05/23/2016 Depression screening for age 12+ 04/20/2018 04/20/20 17, 05/23/2016 Mammogram for age 45-75 04/20/2018 04/20/20 17, 05/23/2016, 06/11/2012, Additional history exists Tetanus booster 04/10/2021 04/10/2011, 01/21/2003 Colonoscopy through age 75 05/02/2021 05/02/2011, Lipids for age 45-75 05/23/2021 05/23/2016, 04/26/2011, 09/28/2006 COVID-19 vaccine series (2022-24 season) 2023 DEXA/DXA scan for age 65+ 01/08/2024 Pneumococcal series for age 65+ (1 of 1 - PCV) 01/08/2024 Influenza for age 65+ 02/03/2024 04/20/2017, 016 Pap test for age 21-65 12/27/2025 3, 12/27/2022, 05/23/2018, Additional history exists Tdap Completed 04/10/2011 Goals Goal Patient Goal Type Associated Problems Recent Progress Patient-Stated? Author BLOOD PRESSURE - MAINTAINS BP less than 140/90 Blood Pressure No Maeve Keating MD Procedures Procedure Name Priority Date/Time Associated Diagnosis Comments HPV THIN PREP Routine 12/27/2022 12:00 PM CDT XR MAMMO BILAT SCREENING Routine 04/20/2017 3:18 PM KAIAWHINA Visit for screening mammogram LIPID PANEL W REFLEX MEASURED LDL Routine 05/23/2016 9:59 AM KAIAWHINA Lipid screening from Last 3 Months or Most Recently Relevant to Health Maintenance Results * HPV HIGH RISK (12/27/2022 12:00 PM CDT) TYPE 16 Negative Negative 12/29/2022 3:59 PM CDT [facility] LAB[facility]AT[facility] TYPE 18 Negative Negative 12/29/2022 3:59 PM CDT [facility] TR[facility] LAB[facility] OTHER HIGH RISK TYPES Negative Negative 12/29/2022 3:59 PM CDT [facility] LAB[facility] Other (Cervical) 12/27/2022 12:00 PM CDT 12/28/2022 2:43 PM CDT Narrative [facility] LABORATORY-CENTRAL LABORATORY - 12/29/2022 3:59 PM CDT HPV types 16, 18, 31, 33, 35, 39, 45, 51, 52, 56, 58, 59, 66 and 68 DNA were undetectable or below the pre-set threshold. Methodology: [employer] 4800 HPV Test Bonita Roy NP MICROBIOLOGY [facility] LABORATORY-CENTRAL LABORATORY [address] [place] [address], [place] * XR MAMMO BILAT SCREENING (04/20/2017 3:18 PM KAIAWHINA) Anatomical Region Laterality Modality BREASTS, Breast Left, Breast Right Bilateral Mammography Impressions 04/23/2017 12:22 PM KAIAWHINA ??There is no radiographic evidence for malignancy. ??Recommend annual mammograms. A lay language report of this examination will be provided to the patient. MAMMOGRAM ASSESSMENT: ??ACR 2 Benign Narrative 04/23/2017 12:22 PM KAIAWHINA XR MAMMO BILAT SCREENING [[id number]] CLINICAL HISTORY: ??This is an asymptomatic 57 y.o. patient. INDICATION FOR EXAM: Mammogram Screening. TECHNIQUE: CC & MLO views were obtained. ??This digital study was evaluated with the assistance of Computer-Aided Detection. COMPARISON FILMS: Yes 05/23/16 [facility] 06/11/12 [facility] FINDINGS: ??Mammographically, the breast tissue has scattered fibroglandular densities. ??No suspicious masses or microcalcifications. ?? Benign appearing calcifications within both breasts and Intramammary lymph node within left breast. Maeve Keating MD MAMMO * (ABNORMAL) LIPID PANEL W REFLEX MEASURED LDL ([id number]) (05/23/2016 9:59 AM KAIAWHINA) CHOLESTEROL,TOTAL 251(H) 100 - 199 mg/dL 05/23/2016 10:40 AM KAIAWHINA [facility] TRIGLYCERIDES 81 <150 mg/dL 05/23/2016 10:40 AM KAIAWHINA [facility] HDL CHOLESTEROL 75 >40 mg/dL 6 10:40 AM KAIAWHINA [facility] NON-HDL CHOLESTEROL 176(H) <145 mg/dl 05/23/2016 10:40 AM [facility] CHOL/HDL RATIO 3.35 <4.50 05/23/2016 10:40 AM [facility] LDL CHOLESTEROL 160(H) <=130 mg/dL 05/23/2016 10:40 AM [facility] PATIENT STATUS FASTING 05/23/2016 10:40 AM KAIAWHINA [facility] Blood BLOOD SPECIMEN / Unknown Venipuncture / Unknown 05/23/2016 9:59 AM KAIAWHINA 05/23/2016 9:59 AM [facility]INA Nan Loomis MD CHEMISTRY [facility] [address] [place] [address], from Last 3 Months or Most Recently Relevant to Health Maintenance Care Teams Television Picture Tube Rebuilder Relationship Specialty Start Date End Date Siobhan Puente MD PCP - General Family Practice 06/05/18
--- OUTSIDE RECORDS SUMMARY | 2024-02-01 00:20 | XMS_ITS | Referral Summary ---
Author Organization [facility] Address [address] [place] [address] Care Team Providers Care Attending Physician Name Role Phone Elsewhere, Pcp Primary Care Provider Unavailabl e Source Comments Patient records contain information from all sites at [facility]. For routine questions regarding patient records, call [phone] during business hours, M-F 8:00 AM - 5:00 PM Central Time. Record requests for emergency care only can be directed to [phone] at any time.[facility] Encounters Date Type Department Care Team Description 11/08/2023 Clinical Communication Department of Neurological Surgery in [address] [place] [address] Kristin Grover, PEileen.-C., M.S. Results (CT Head) from Last 3 Months Allergies No known [...] capsule Take by mouth. 05/23/2016 Activ e uesfgshnpbfh-Rd-lqiq -minerals 27-0.4 mg tablet Take 1 tablet [...] 0.6 oz pur e alcohol) [facility] Utilities Answer Date Recorded In the past 12 months has e [employer], oil, or water [employer] threatened to shut off services in your [...] your living situation today? I have a [facility] place to live 10/02/2023 Sex and [...] Procedure Name Priority Date/Time Associated Diagnosis Comments OUTSIDE CT NEURO Routine 11/05/2023 3:05 PM CDT BASIC METABOLIC PANEL, S/P Routine 10/02/2023 5:50 AM CDT from Last 3 Months or Most Recently Relevant to Health Maintenance Results * CT HEAD/BRAIN WO CON-Outside CT Neuro (11/05/2023 3:05 PM CDT) Becka HOUSTON - 11/08/2023 11:14 AM CDT This order has been created and auto-finalized to support the import of outside images. If available, original interpretation can be found on the Media Tab in Chart Review, in Document Viewer, as an image in QREADS or as an Addendum. If a re-interpretation or overread is required please follow defined workflow.?? Provider Not In System IMG CT PROCEDURES IIWA NA * (ABNORMAL) Basic Metabolic Panel (10/02/2023 5:50 AM CDT) Potassium, P 4.1 3.6 - 5.2 mmol/L [...] LAB BLO OD ADD-ON [facility] [address] [place] [address], [facility] NPRG [facility] [address] [place] [address] from Last 3 Months or Most Recently Relevant to Health Maintenance Advance Directives For more information, please contact: [phone] * Full Code (Latest Code Status on File) Date Activated Date Inactivated Comments 10/02/2023 2:18 AM 10/02/2023 8:51 PM Question Answer Comments Full Code: Discussed Care Teams Attending Physician Relationship Specialty Start Date End Date Elsewhere, Pcp PCP - General Internal Medicine 10/01/23
--- OUTSIDE RECORDS SUMMARY | 2024-02-01 00:20 | XMS_ITS | Clinical Summary ---
Author Organization [facility] Address [address] [place] [address] Care Team Providers Care Tower Cleaner Name Role Phone Elsewhere, Pcp Primary Care Provider Unavailabl e Source Comments Patient records contain information from all sites at [facility]. For routine questions regarding patient records, call [phone] during business hours, M-F 8:00 AM - 5:00 PM Central Time. Record requests for emergency care only can be directed to [phone] at any time.[facility] Allergies No known active allergies Medications Medication [...] capsule Take by mouth. 05/23/2016 Activ e qkxsseqcehal-Yp-wyts -minerals 27-0.4 mg tablet Take 1 tablet [...] Clinical Communication Department of Neurological Surgery in [address] [address] Kristin Grover P.A.-C., M.S. Results (CT Head) from Last 3 Months Immunizations Name Administration Dates Next Due Td (Adult), adsorbed 01/21/2003 Tdap 10/01/2023,04/10/2011 influenza vaccine quad (FLUZ ONE/FLUARIX) (6 months and older)(PF) 04/20/2017,05/23/2016 Social History Tobacco Use Types Packs/Day Years Used Date Smoking Tobacco: Never Smokeless Tobacco: Never Tobacco Cessation:Counseling Given: Not Answered Alcohol Use Standard Drinks/Week Comments Yes 0 (1 standard drink = 0.6 oz pur e alcohol) [facility] Utilities Answer Date Recorded In the past 12 months has [facility] [employer], [employer], oil, or water [employer] threatened to shut off services in your [...] Health Maintenance Due Date Last Done Comments Bone Density Scan (Osteoporo sis Screen) 1959 CT Colonography 1959 Cologuard 1959 Colonoscopy 1959 Colorectal Cancer Screening 1959 FIT 1959 HIV Screening 1959 Hepatitis C Screening 1959 Mammogram 1959 Pneumococcal vaccine (65+ ye ars) (1 of 2 - PCV) 1965 Depression Screening (Annual PHQ-2) 06/04/2023 COVID-19 Vaccine (2022-2 4 season) 2023 04/04/2023, 04/12/2022, 12/27/2021, Additional history exists Fall Risk Screen (Annual) 01/08/2024 Influenza Vaccine (#1) 2024 , 03/13/2022, 03/15/2021, Additional history exists Cervical Cancer Screening 12/27/2025 12/27/2022 Fasting Glucose for Diabetes Screening 10/01/2026 10/02/2023, 10/02/2023, 10/01/2023 DTaP,Tdap,and Td Vaccines (4 - Td or Tdap) 09/30/2033 10/01/2023, 09/30/2020, 04/10/2011, Additional history exists Zoster Vaccines Completed 02/01/2021, 11/08/2020 Procedures Procedure Name Priority Date/Time Associated Diagnosis Comments OUTSIDE CT NEURO Routine 11/05/2023 3:05 PM CDT BASIC METABOLIC PANEL, S/P Routine 10/02/2023 5:50 AM CDT from Last 3 Months or Most Recently Relevant to Health Maintenance Results * CT HEAD/BRAIN WO CON-Outside CT Neuro (11/05/2023 3:05 PM CDT) Narrative [facility] - 11/08/2023 11:14 AM CDT This order has been created and auto-finalized to support the import of outside images. If available, original interpretation can be found on the Media Tab in Chart Review, in Document Viewer, as an image in QREADS or as an Addendum. If a re-interpretation or overread is required please follow defined workflow.?? Provider Not In System IMG CT PROCEDURES [facility] NA * (ABNORMAL) Basic Metabolic Panel (10/02/2023 [...] APRN, C.N.P., D.N.P. LAB BLO OD ADD-ON [facility] [address] [place] [address], [facility] NPRG [facility] [address] [place] [address] from Last 3 Months or Most Recently Relevant to Health Maintenance Advance Directives For more information, please contact: [phone] * Full Code (Latest Code Status on File) Date Activated Date Inactivated Comments 10/02/2023 2:18 AM 10/02/2023 8:51 PM Question Answer Comments Full Code: Discussed Care Teams Tower Cleaner Relationship Specialty Start Date End Date Elsewhere, Pcp PCP - General Internal Medicine 10/01/23
--- OUTSIDE RECORDS SUMMARY | 2024-02-01 00:20 | XMS_ITS ---
Author Organization [facility] Address [address] [place] [address] Care Team Providers Care Sports Leadership Instructor Name Role Phone Unavailable Unavailable Unavailable Surgery Details Not on file Complications Check Surgery Details section. Procedure Estimated Blood Loss Check Surgery Details section. Procedure Findings Check Surgery Details section. Procedure Specimens Taken Check Surgery Details section.
== END 2024-01-28 08:00 | disposition home or self-care (01) ==
LOC: NFLDREF 02-01 00:18
PROVIDERS: PCP Internal Medicine; Referring Provider Internal Medicine; Visit Provider Internal Medicine
DX: E78.5 Hyperlipidemia, unspecified (principal); Z13.1 Encounter for screening for diabetes mellitus
CPT/HCPCS: 80061; 82947

== ENCOUNTER 2024-02-18 14:43 | Outpatient (CLI) | payer OTHER, SELFPAY ==
--- OUTSIDE RECORDS SUMMARY | 2024-02-18 14:45 | XMS_ITS | Clinical Summary ---
Author Organization [facility] Address [address] [place] [address] Care Team Providers Care Matting Press Tender Name Role Phone Elsewhere, Pcp Primary Care Provider Unavailabl e Source Comments Patient records contain information from all sites at [facility]. For routine questions regarding patient records, call [phone] during business hours, M-F 8:00 AM - 5:00 PM Central Time. Record requests for emergency care only can be directed to [phone] at any time.[facility] Allergies No known active allergies Medications Medication [...] capsule Take by mouth. 05/23/2016 Activ e mijheijoqkxq-Ls-frcs -minerals 27-0.4 mg tablet Take 1 tablet [...] drink = 0.6 oz pur e alcohol) [facility] Utilities Answer Date Recorded In the past [address] [facility] [employer], gas, oil, or water [employer] threatened to shut off services in your [...] Date Recorded Dental: Regular Dentist Unknown 10/10/19 24 Housing Stability Answer Date Recorded What is your living situation today? I have a [facility] place to live 10/02/2023 Sex and [...] PCV) 1965 Depression Screening (Annual PHQ-2) 06/04/2023 Fall Risk Screen (Annual) 01/08/2024 COVID-19 Vaccine (2022-2 4 season) 2024 04/04/2023, 04/12/2022, 12/27/2021, Additional history exists Influenza Vaccine (#1) 2024 , 03/13/2022, 03/15/2021, Additional history exists Cervical Cancer Screening 12/27/2025 12/27/2022 Fasting Glucose for Diabetes Screening 10/01/2026 10/02/2023, 10/02/2023, 10/01/2023 DTaP,Tdap,and Td Vaccines (4 - Td or Tdap) 09/30/2033 10/01/2023, 09/30/2020, 04/10/2011, Additional history exists Zoster Vaccines Completed 02/01/2021, 11/08/2020 Procedures Procedure Name Priority Date/Time Associated Diagnosis Comments BASIC METABOLIC PANEL, S/P Routine 10/02/2023 5:50 AM CDT from Last 3 Months or Most Recently Relevant to Health Maintenance Results * (ABNORMAL) Basic Metabolic Panel (10/02/2023 5:50 AM CDT) Pathologist [facility] Potassium, P 4.1 3.6 - 5.2 mmol/L [...] APRN, C.N.P., D.N.P. LAB BLO OD ADD-ON [facility] [address] [place] [address], [place] NPRG [facility] [address] [place] [address] from Last 3 Months or Most Recently Relevant to Health Maintenance Advance Directives For more information, please contact: [phone] * Full Code (Latest Code Status on File) Date Activated Date Inactivated Comments 10/02/2023 2:18 AM 10/02/2023 8:51 PM Question Answer Comments Full Code: Discussed Care Teams Matting Press Tender Relationship Specialty Start Date End Date Elsewhere, Pcp PCP - General Internal Medicine 10/01/23
--- OUTSIDE RECORDS SUMMARY | 2024-02-18 14:45 | XMS_ITS ---
Author Organization [facility] Address [address] [place] [address] Care Team Providers Care Spot Welder Body Assembly Name Role Phone Elsewhere, Pcp [facility] Program Status:Identified (Enrolling) Start date:10/02/2023 Continued Care and Services Coordination
--- OUTSIDE RECORDS SUMMARY | 2024-02-18 14:45 | XMS_ITS | Clinical Summary ---
Author Organization [employer] [facility] [employer] [facility] Address [place], [place] [address] Care Team Providers Care Crushing Machine Operator Name Role Phone Siobhan Puente MD Primary [...] colon (without mention of hemo rrhage) 05/02/2011 Overview (05/02/2011): Colonoscopy 04/2011 diverticulosis repeat in 10 years Mole (skin) 01/03/2010 Overview (01/18/2010): Moderate atypia in lesion on the low [...] Comments Blood Pressure 147/82 04/20/2017 3:44 PM STEAM POWER PLANT OPERATOR Pulse 60 04/20/2017 3:39 PM STEAM POWER PLANT OPERATOR Temperature 36.8 ??C (98.2 ??F) 05/23/2016 9:17 AM CS T Respiratory Rate - - Oxygen Saturation 99% 04/20/2017 3:39 PM STEAM POWER PLANT OPERATOR Inhaled Oxygen Concentration - - Weight 70.8 kg (156 lb) 04/20/2017 3:39 PM STEAM POWER PLANT OPERATOR Height 168.5 cm (5' 6.34) 04/20/2017 3:39 PM CS T Body Mass Index 24.92 04/20/2017 3:39 PM STEAM POWER PLANT OPERATOR Plan of Treatment Health Maintenance Due Date Last Done Comments HIV for age 15-65 1974 Hepatitis C screening for ag e 18-79 1977 Zoster (shingles) series for age 50+ (1 of 2) 2009 BMI (ht and wt on same day) for age 18+ 04/20/2018 04/20/2017, 05/23/2016 Depression screening for age 12+ 04/20/2018 04/20/20, 05/23/2016 Mammogram for age 45-75 04/20/2018 04/20/20, 05/23/2016, 06/11/2012, Additional history exists Tetanus booster 04/10/2021 04/10/2011, 01/21/2003 Colonoscopy through age 75 05/02/2021 05/02/2011, Lipids for age 45-75 05/23/2021 05/23/2016, 04/26/2011, 09/28/2006 DEXA/DXA scan for age 65+ 01/08/2024 Pneumococcal series for age 65+ (1 of 1 - PCV) 01/08/2024 COVID-19 vaccine series ( - 2022-24 season) 2024 Influenza for age 65+ 02/03/2024 04/20/2017, 016 Pap test for age 21-65 12/27/2025 , 12/27/2022, 05/23/2018, Additional history exists Tdap Completed 04/10/2011 Goals Goal Patient Goal Type Associated Problems Recent Progress Patient-Stated? Author BLOOD PRESSURE - MAINTAINS BP less than 140/90 Blood Pressure No Maeve Keating MD Procedures Procedure Name Priority Date/Time Associated Diagnosis Comments HPV HIGH RISK Routine 12/27/2022 12:00 PM CDT XR MAMMO BILAT SCREENING Routine 04/20/2017 3:18 PM STEAM POWER PLANT OPERATOR Visit for screening mammogram LIPID PANEL W REFLEX MEASURED LDL Routine 05/23/2016 9:59 AM STEAM POWER PLANT OPERATOR Lipid screening from Last 3 Months or Most Recently Relevant to Health Maintenance Results * HPV HIGH RISK (12/27/2022 12:00 PM CDT) TYPE 16 Negative Negative 12/29/2022 3:59 PM CDT [facility] TR[facility] LABORAT[facility] TYPE 18 Negative Negative 12/29/2022 3:59 PM CDT [facility] TRAL LABORATORY OTHER HIGH RISK TYPES Negative Negative 12/29/2022 3:59 PM CDT [facility] TRAL LABORATORY Other (Cervical) 12/27/2022 12:00 PM CDT 12/28/2022 2:43 PM CDT [facility]ative [facility] 12/29/2022 3:59 PM CDT HPV types 16, 18, 31, 33, 35, 39, 45, 51, 52, 56, 58, 59, 66 and 68 DNA were undetectable or below the pre-set threshold. Methodology: [employer] 4800 HPV Test Bonita Roy NP MICROBIOLOGY [facility] LABORATORY-CENTRAL LABORATORY [address] [place] [address], * XR MAMMO BILAT SCREENING (04/20/2017 3:18 PM STEAM POWER PLANT OPERATOR) Anatomical Region Laterality Modality BREASTS, Breast Left, Breast Right Bilateral Mammography Impressions 04/23/2017 12:22 PM STEAM POWER PLANT OPERATOR ??There is no radiographic evidence for malignancy. ??Recommend annual mammograms. A lay language report of this examination will be provided to the patient. MAMMOGRAM ASSESSMENT: ??ACR 2 Benign Narrative 04/23/2017 12:22 PM STEAM POWER PLANT OPERATOR XR MAMMO BILAT SCREENING [[id number]] CLINICAL HISTORY: ??This is an asymptomatic 57 y.o. patient. INDICATION FOR EXAM: Mammogram Screening. TECHNIQUE: CC & MLO views were obtained. ??This digital study was evaluated with the assistance of Computer-Aided Detection. COMPARISON FILMS: Yes 05/23/16 [facility] 06/11/12 [facility] FINDINGS: ??Mammographically, the breast tissue has scattered fibroglandular densities. ??No suspicious masses or microcalcifications. ?? Benign appearing calcifications within both breasts and Intramammary lymph node within left breast. Maeve Keating MD MAMMO * (ABNORMAL) LIPID PANEL W REFLEX MEASURED LDL ([id number]) (05/23/2016 9:59 AM STEAM POWER PLANT OPERATOR) CHOLESTEROL,TOTAL 251(H) 100 - 199 mg/dL 05/23/2016 10:40 AM STEAM POWER PLANT OPERATOR [facility] TRIGLYCERIDES 81 <150 mg/dL 05/23/2016 10:40 AM STEAM POWER PLANT OPERATOR [facility] HDL CHOLESTEROL 75 >40 mg/dL 6 10:40 AM STEAM POWER PLANT OPERATOR [facility] NON-HDL CHOLESTEROL 176(H) <145 mg/dl 05/23/2016 10:40 AM STEAM POWER PLANT OPERATOR [facility] CHOL/HDL RATIO 3.35 <4.50 05/23/2016 10:40 AM STEAM POWER PLANT OPERATOR [facility] LDL CHOLESTEROL 160(H) <=130 mg/dL 05/23/2016 10:40 AM STEAM POWER PLANT OPERATOR [facility] PATIENT STATUS FASTING 05/23/2016 10:40 AM STEAM POWER PLANT OPERATOR [facility] Blood BLOOD SPECIMEN / Unknown Venipuncture / Unknown 05/23/2016 9:59 AM STEAM POWER PLANT OPERATOR 05/23/2016 9:59 AM STEAM POWER PLANT OPERATOR Nan Loomis MD CHEMISTRY [facility] [address] [place] [address], from Last 3 Months or Most Recently Relevant to Health Maintenance Care Teams Crushing Machine Operator Relationship Specialty Start Date End Date Siobhan Puente MD PCP - General Family Practice 06/05/18
--- OUTSIDE RECORDS SUMMARY | 2024-02-18 14:45 | XMS_ITS | Referral Summary ---
Author Organization [facility] Address [address] [place] [address] Care Team Providers Care Flavor Tank Tender Name Role Phone Elsewhere, Pcp Primary Care Provider Unavailabl e Source Comments Patient records contain information from all sites at [facility]. For routine questions regarding patient records, call [phone] during business hours, M-F 8:00 AM - 5:00 PM Central Time. Record requests for emergency care only can be directed to [phone] at any time.[facility] Allergies No known active allergies Medications [...] capsule Take by mouth. 05/23/2016 Activ e zvemkhzuoxge-Do-olqr -minerals 27-0.4 mg tablet Take 1 tablet [...] drink = 0.6 oz pur e alcohol) [facility] Utilities Answer Date Recorded In the past 12 months has [facility] [employer], gas, oil, or water [employer] threatened to shut off services in your [...] your living situation today? [facility] have a [facility] live 10/02/2023 Sex and [...] APRN, C.N.P., D.N.P. LAB BLO OD ADD-ON [facility] [address] [place] [address], [facility] NPRG [facility] [address] [place] [address] from Last 3 Months or Most Recently Relevant to Health Maintenance Advance Directives For more information, please contact: [phone] * Full Code (Latest Code Status on File) Date Activated Date Inactivated Comments 10/02/2023 2:18 AM 10/02/2023 8:51 PM Question Answer Comments Full Code: Discussed Care Teams Flavor Tank Tender Relationship Specialty Start Date End Date Elsewhere, Pcp PCP - General Internal Medicine 10/01/23
--- OUTSIDE RECORDS SUMMARY | 2024-02-18 14:45 | XMS_ITS ---
Author Organization [facility] Address [address] [place] [address] Care Team Providers Care Corrective Therapist Name Role Phone Unavailable Unavailable Unavailable Surgery Details Not on file Complications Check Surgery Details section. Procedure Estimated Blood Loss Check Surgery Details section. Procedure Findings Check Surgery Details section. Procedure Specimens Taken Check Surgery Details section.
--- NOTE | 2024-02-18 15:00 | CRLHL7_ITS ---
For Patients: As a result of the Century Cures Act, medical imaging exams and procedure reports are released immediately into your electronic medical record. You may view this report before your referring provider. If you have questions, please contact your health care provider. BILATERAL SCREENING MAMMOGRAM WITH COMPUTER-AIDED DETECTION AND TOMOSYNTHESIS TECHNIQUE: CC and MLO views were obtained. These mammographic images have been obtained using full-field digital technique. These mammographic images were interpreted with the benefit of computer-aided detection. Breast Tomosynthesis was used in this interpretation. COMPARISON FILM: 02/15/23, 09/07/20, 05/26/19. FINDINGS: There are scattered areas of fibroglandular density. IMPRESSION: There is no radiographic evidence for malignancy. ASSESSMENT: BI-RADS Category 1: Negative RECOMMENDATION: Routine screening mammogram in 1 year. A lay language report of this examination will be provided to the patient. Klever Roland M.D. Diagnostic Radiologist [email or web address] SP/Dictated by: Klever Roland MD @ 02/19/2024 10:06:00 AM (Electronically Signed)
== END 2024-02-18 14:44 | disposition home or self-care (01) ==
LOC: MAMMO 14:44
PROVIDERS: PCP Internal Medicine; Visit Provider Internal Medicine
DX: Z12.31 Encounter for screening mammogram for malignant neoplasm of breast (principal)
CPT/HCPCS: 77063; 77067

== ENCOUNTER 2024-02-28 14:47 | Outpatient (CLI) | payer OTHER, SELFPAY ==
--- OUTSIDE RECORDS SUMMARY | 2024-02-28 14:51 | XMS_ITS | Clinical Summary ---
Author Organization [facility] Address [place], [place] [address] Care Team Providers Care Windows System Admin Name Role Phone Siobhan Puente MD Primary [...] Comments Blood Pressure 147/82 04/20/2017 3:44 PM RECRUITMENT COORDINATOR Pulse 60 04/20/2017 3:39 PM RECRUITMENT COORDINATOR Temperature 36.8 ??C (98.2 ??F) 05/23/2016 9:17 AM CS T Respiratory Rate - - Oxygen Saturation 99% 04/20/2017 3:39 PM RECRUITMENT COORDINATOR Inhaled Oxygen Concentration - - Weight 70.8 kg (156 lb) 04/20/2017 3:39 PM RECRUITMENT COORDINATOR Height 168.5 cm (5' 6.34) 04/20/2017 3:39 PM CS T Body Mass Index 24.92 04/20/2017 3:39 PM RECRUITMENT COORDINATOR Plan of Treatment Health Maintenance Due Date [...] 1 - PCV) 01/08/2024 COVID-19 vaccine series (2023- season) 2024 Influenza for age 65+ 02/03/2024 [...] MAMMO BILAT SCREENING Routine 04/20/2017 3:18 PM RECRUITMENT COORDINATOR Visit for screening mammogram LIPID PANEL W REFLEX MEASURED LDL Routine 05/23/2016 9:59 AM RECRUITMENT COORDINATOR Lipid screening from Last 3 Months or Most Recently Relevant to Health Maintenance Results * HPV HIGH RISK (12/27/2022 12:00 PM CDT) TYPE 16 Negative Negative 12/29/2022 3:59 PM CDT [facility] TYPE 18 Negative Negative 12/29/2022 3:59 PM CDT [facility] OTHER HIGH RISK TYPES Negative Negative 12/29/2022 3:59 PM CDT [facility] Other (Cervical) 12/27/2022 12:00 PM CDT 12/28/2022 2:43 PM CDT [facility]ative [facility] - 12/29/2022 3:59 PM CDT HPV types 16, 18, 31, 33, 35, 39, 45, 51, 52, 56, 58, 59, 66 and 68 DNA were undetectable or below the pre-set threshold. Methodology: Emay [employer] 4800 HPV Test Bonita Roy NP MICROBIOLOGY [facility] [address] [place] [address], * XR MAMMO BILAT SCREENING (04/20/2017 3:18 PM RECRUITMENT COORDINATOR) Anatomical Region Laterality Modality BREASTS, Breast Left, Breast Right Bilateral Mammography Impressions 04/23/2017 12:22 PM RECRUITMENT COORDINATOR ??There is no radiographic evidence for malignancy. ??Recommend annual mammograms. A lay language report of this examination will be provided to the patient. MAMMOGRAM ASSESSMENT: ??ACR 2 Benign Narrative 04/23/2017 12:22 PM RECRUITMENT COORDINATOR XR MAMMO BILAT SCREENING [[id number]] CLINICAL HISTORY: ??This is an asymptomatic 57 y.o. patient. INDICATION FOR EXAM: Mammogram Screening. TECHNIQUE: CC & MLO views were obtained. ??This digital study was evaluated with the assistance of Computer-Aided Detection. COMPARISON FILMS: Yes 05/23/16 [facility] 06/11/12 [facility] FINDINGS: ??Mammographically, the breast tissue has scattered fibroglandular densities. ??No suspicious masses or microcalcifications. ?? Benign appearing calcifications within both breasts and Intramammary lymph node within left breast. Maeve Keating MD MAMMO * (ABNORMAL) LIPID PANEL W REFLEX MEASURED LDL ([id number]) (05/23/2016 9:59 AM RECRUITMENT COORDINATOR) CHOLESTEROL,TOTAL 251(H) 100 - 199 mg/dL 05/23/2016 10:40 AM RECRUITMENT COORDINATOR [facility] TRIGLYCERIDES 81 <150 mg/dL 05/23/2016 10:40 AM RECRUITMENT COORDINATOR [facility] HDL CHOLESTEROL 75 >40 mg/dL 6 10:40 AM RECRUITMENT COORDINATOR [facility] NON-HDL CHOLESTEROL 176(H) <145 mg/dl 05/23/2016 10:40 AM RECRUITMENT COORDINATOR [facility] CHOL/HDL RATIO 3.35 <4.50 05/23/2016 10:40 AM RECRUITMENT COORDINATOR [facility] LDL CHOLESTEROL 160(H) <=130 mg/dL 05/23/2016 10:40 AM RECRUITMENT COORDINATOR [facility] PATIENT STATUS FASTING 05/23/2016 10:40 AM RECRUITMENT COORDINATOR [facility] Blood BLOOD SPECIMEN / Unknown Venipuncture / Unknown 05/23/2016 9:59 AM RECRUITMENT COORDINATOR 05/23/2016 9:59 AM RECRUITMENT COORDINATOR Nan Loomis MD CHEMISTRY [facility] [address] [place] [address], from Last 3 Months or Most Recently Relevant to Health Maintenance Care Teams Windows System Admin Relationship Specialty Start Date End Date Siobhan Puente MD PCP - General Family Practice 06/05/18
--- OUTSIDE RECORDS SUMMARY | 2024-02-28 14:51 | XMS_ITS ---
Author Organization [facility] Address [address] [place] [address] Care Team Providers Care Bedspread Seamer Name Role Phone Elsewhere, Pcp Primary Care Provider [facility] Program Status:Identified (Enrolling) Start date:10/02/2023 Continued Care and Services Coordination
--- OUTSIDE RECORDS SUMMARY | 2024-02-28 14:51 | XMS_ITS ---
Author Organization [facility] Address [address] [place] [address] Care Team Providers Care Reel Assembler Name Role Phone Unavailable Unavailable Unavailable Surgery Details Not on file Complications Check Surgery Details section. Procedure Estimated Blood Loss Check Surgery Details section. Procedure Findings Check Surgery Details section. Procedure Specimens Taken Check Surgery Details section.
--- OUTSIDE RECORDS SUMMARY | 2024-02-28 14:51 | XMS_ITS | Clinical Summary ---
Author Organization [facility] Address [address] [place] [address] Care Team Providers Care Sequins Stringer Name Role Phone Elsewhere, Pcp Primary Care Provider Unavail[facility] Source Comments Patient records contain information from all sites at [facility]. For routine questions regarding patient records, call [phone] during business hours, M-F 8:00 AM - 5:00 PM Central Time. Record requests for emergency care only can be directed to [phone] at any time.[facility] Allergies No known active allergies Medications [...] capsule Take by mouth. 05/23/2016 Activ e qadszsshbsji-Ou-letx -minerals 27-0.4 mg tablet Take 1 tablet [...] drink = 0.6 oz pur e alcohol) [facility] Utilities Answer Date Recorded In the past 12 months has [facility] [employer], gas, oil, or water [employer] threatened to shut off services in your [...] your living situation today? I have a [facility] place to live 10/02/2023 Sex [...] Fall Risk Screen (Annual) 01/08/2024 COVID-19 Vaccine (2023-2 5 season) 2024 04/04/2023, 04/12/2022, 12/27/2021, Additional history [...] Metabolic Panel (10/02/2023 5:50 AM CDT) Pathologist [facility] Potassium, P 4.1 3.6 - 5.2 mmol/L [...] APRN, C.N.P., D.N.P. LAB BLO OD ADD-ON [facility] [address] [place] [address], [place] [facility] [address] [place] [address] from Last 3 Months or Most Recently Relevant to Health Maintenance Advance Directives For more information, please contact: [phone] * Full Code (Latest Code Status on File) Date Activated Date Inactivated Comments 10/02/2023 2:18 AM 10/02/2023 8:51 PM Question Answer Comments Full Code: Discussed Care Teams Sequins Stringer Relationship Specialty Start Date End Date Elsewhere, Pcp PCP - General Internal Medicine 10/01/23
--- OUTSIDE RECORDS SUMMARY | 2024-02-28 14:51 | XMS_ITS | Referral Summary ---
Author Organization [facility] Address [address] [place] [address] Care Team Providers Care Echocardiograph Tech Name Role Phone Elsewhere, Pcp Primary Care Provider Unavailabl e Source Comments Patient records contain information from all sites at [facility]. For routine questions regarding patient records, call [phone] during business hours, M-F 8:00 AM - 5:00 PM Central Time. Record requests for emergency care only can be directed to [phone] at any time.[facility] Allergies No known active allergies Medications Medication [...] capsule Take by mouth. 05/23/2016 Activ e odwxwbzngfjv-Hs-oups -minerals 27-0.4 mg tablet Take 1 tablet [...] 0.6 oz pur e alcohol) [facility] Utilities Answer Date Recorded In the past [address] [facility] [employer] gas, oil, or water [employer] threatened to shut off services in your [...] your living situation today? I have a [facility] place to live 10/02/2023 Sex and [...] C.N.P., D.N.P. LAB BLO OD ADD-ON [facility] [address] [place] [address], [facility] NPRG [facility] [address] [place] [address] from Last 3 Months or Most Recently Relevant to Health Maintenance Advance Directives For more information, please contact: [phone] * Full Code (Latest Code Status on File) Date Activated Date Inactivated Comments 10/02/2023 2:18 AM 10/02/2023 8:51 PM Question Answer Comments Full Code: Discussed Care Teams Echocardiograph Tech Relationship Specialty Start Date End Date Elsewhere, Pcp PCP - General Internal Medicine 10/01/23
--- NOTE | 2024-02-28 15:00 | CRLHL7_ITS ---
For Patients: As a result of the Century Cures Act, medical imaging exams and procedure reports are released immediately into your electronic medical record. You may view this report before your referring provider. If you have questions, please contact your health care provider. DXA BONE MINERAL DENSITY STUDY Reason for exam: Screening. Current height (in): 67. Weight (lb): 160. Menopause age: 49. Ethnicity: White. 1. Have you had a previous hip or vertebral fracture? No. 2. Have you had any fractures during your adult life which did not result from significant trauma (e.g., auto accident)? No. 3. Did either of your parents have a hip fracture? No. 4. Do you smoke? No. 5. Have you ever taken Glucocorticoids? No. 6. Do you have rheumatoid arthritis? No. 7. Do you have secondary osteoporosis? No. 8. Do you drink 3 or more alcoholic drinks per day? No. 9. Are you being treated for osteoporosis? No. 10. Have you ever taken any of the following medications: Actonel, Evista, Fosamax, Miacalcin, Reclast, Boniva, Forteo, HRT (i.e. estrogen/hormone therapy), Protelos, Prolia, Vitamin D, Calcium, other ??? please specify. ANSWER: No. 11. Do you have any of the following medical conditions: Anorexia or bulimia, asthma or emphysema, end stage renal disease, hyperparathyroidism, any seizure disorders, cancer, inflammatory bowel diseases, hysterectomy, other ??? please specify. ANSWER: No. 12. What was your maximum height (inches)? 67.5. 13. Do you perform weight bearing exercise regularly? Yes. 14. Do you regularly consume dairy products? Yes. 15. Do you drink caffeinated beverages? Yes. 16. At what age did your period start? 15. 17. Are you premenopausal? No. 18. How many full term pregnancies have you had? Zero. 19. Have you ever missed your period for more than 6 months in a row (not including or menopause)? No. TECHNIQUE: Bone mineral density study was performed using the Lumiary. FINDINGS: The results of the study expressed as bone mineral density (BMD) are as follows: Lumbar spine L1 to L4: BMD: 0.943 g/cm2. T-score: -0.9. Z-score: 0.8. Neck Left: BMD: 0.660 g/cm2. T-score: -1.7. Z-score: -0.2. Right: BMD: 0.677 g/cm2. T-score: -1.5. Z-score: 0.0. Total Left: BMD: 0.844 g/cm2. T-score: -0.8. Z-score: 0.4. Right: BMD: 0.843 g/cm2. T-score: -0.8. Z-score: 0.4. IMPRESSION: Osteopenia. FRAX 10-year Fracture Risk Major Osteoporotic Fracture: 9.7 percent Hip Fracture: 1.2 percent Reported Risk Factors: [place] () Neck BMD=0.660, BMI=25.1 SONDRA EISENBERG M.D. [email or web address] bM/Dictated by: Sondra Eisenberg MD @ 02/29/2024 2:16:00 PM (Electronically Signed)
== END 2024-02-28 14:48 | disposition home or self-care (01) ==
LOC: RAD 14:49
PROVIDERS: PCP Internal Medicine; Visit Provider Internal Medicine
DX: Z13.820 Encounter for screening for osteoporosis (principal); M85.89 Other specified disorders of bone density and structure, multiple sites; Z78.0 Asymptomatic menopausal state
CPT/HCPCS: 77080

== ENCOUNTER 2025-02-19 08:00 | Outpatient (CLI) | payer MEDICARE, SELFPAY ==
--- NOTE | 2025-02-19 08:15 | CRLHL7_ITS ---
For Patients: As a result of the Century Cures Act, medical imaging exams and procedure reports are released immediately into your electronic medical record. You may view this report before your referring provider. If you have questions, please contact your health care provider. INDICATION: BILATERAL SCREENING MAMMOGRAM, ASYMPTOMATIC 65 Y/O FEMALE COMPARISON: 02/18/2024, 02/15/2023, 02/07/2022 TECHNIQUE: Digital mammogram in CC and MLO projections including computer-aided detection (CAD) and tomosynthesis. BREAST COMPOSITION: There are scattered areas of fibroglandular density. FINDINGS: No suspicious findings. ASSESSMENT: BI-RADS 1 Negative RECOMMENDATION: Annual screening mammogram. A lay language report of this examination will be provided to the patient. Dictated by: Klever Roland MD @ 02/19/2025 12:30:32 (Electronically Signed)
== END 2025-02-19 08:01 | disposition home or self-care (01) ==
LOC: MAMMO 08:01
PROVIDERS: PCP Internal Medicine; Visit Provider Internal Medicine
DX: Z12.31 Encounter for screening mammogram for malignant neoplasm of breast (principal)
CPT/HCPCS: 77063; 77067